=== PATIENT | male | born 1975 | race Caucasian/White ===

== ENCOUNTER 2023-04-27 23:50 | Emergency (ER) | payer OTHER, SELFPAY ==
--- NOTE | 2023-04-27 00:02 | ECG_ITS ---
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
[2023-04-27 23:53] VITALS: BP 180/110; PULSE 64; RESP 18; TEMP 36.6; O2SAT 97; BMI 27.5
[2023-04-28] VITALS (28 sets, daily range): BP systolic 143–180; BP diastolic 89–103; PULSE 55–117; RESP 12–20; O2SAT 94–98
--- NOTE | 2023-04-28 00:08 | ED_ITS ---
HPI - Nausea/Vomiting/Diarrhea General Chief complaint: Nausea/Vomiting/Diarrhea Stated complaint: vomiting Time Seen by Provider: 04/28/23 00:06 Source: patient Mode of arrival: walk-in Limitations: no limitations History of Present Illness HPI Narrative: presents with recurrent vomiting. States started about 9pm. After he emptied his stomach he was dry heaving and noticed some blood. Also has abdominal pain and is constipated. At [facility] last night but so did others in his family and no one is ill except him. No fever MD elicited complaint: Reports nausea and vomiting Related Data Home Medications Medication Instructions Recorded Confirmed No Known Home Medications 04/27/23 04/27/23 Allergies Allergy/AdvReac Type Severity Reaction Status Date / Time No Known Drug Allergies Allergy Verified 04/27/23 23:56 Review of Systems ROS Status of ROS 10 or more systems reviewed and unremark able except as noted in history and below [facility] Social History Smoking status: Current every day smoker Exam Constitutional Vital Signs, click to edit/add: Last Vital Signs Temp 97.9 F 04/27/23 23:53 Pulse 73 04/28/23 04:02 Resp 12 04/28/23 04:02 BP 161/102 H 04/28/23 04:02 Pulse Ox 98 04/28/23 02:50 O2 Del Method Room Air 04/27/23 23:53 Common normals: no apparent distress, average body habitus, oriented x3, no limitations, healthy appearing, alert and well nourished [facility] Common normals: normocephalic and head/scalp atraumatic Eye Common normals: PERRL, EOMs intact bilaterally and conjunctivae normal Respiratory Common normals: normal respiratory effort, no retractions, no use of accessory muscles and clear to auscultation bilaterally Cardio Common normals: regular rate, regular rhythm, S1 normal heart sound and S2 normal heart sound GI Common normals: soft to palpation and non-tender Extremity Common normals: normal to inspection and full ROM Neuro Common normals: oriented x3, CN's II-XII intact bilaterally, moves all extremities and no focal motor deficits Psych Appearance: grossly normal Course Vital Signs Vital signs: Vital Signs Temperature 97.9 F 04/27/23 23:53 Pulse Rate 64 04/27/23 23:53 Respiratory Rate 18 04/27/23 23:53 Blood Pressure 180/110 H 04/27/23 23:53 Pulse Oximetry 97 04/27/23 23:53 Oxygen Delivery Method Room Air 04/27/23 23:53 Temperature 97.9 F 04/27/23 23:53 Pulse Rate 73 04/28/23 04:02 Respiratory Rate 12 04/28/23 04:02 Blood Pressure 161/102 H 04/28/23 04:02 Pulse Oximetry 98 04/28/23 02:50 Oxygen Delivery Method Room Air 04/27/23 23:53 MDM - Nausea/Vomiting/Diarrhea MDM Narrative Medical decision making narrative: patient presents with recurrent vomiting. Complains of RLQ pain. Nausea and vomiting controlled with one dose of zofran. Exam with RLQ tenderness without guarding. CT with findings of stones gallbladder neck. LFTs normal. Patient medicated for pain and observed for an hour. continued to do well and was drinking fluids. Patient re examined and still no RUQ tenderness. Patient also treated for HTN. Discharged home with a prescription for Norvasc, zofran and advised to follow up with a family doctor. He is to return to the ER if pain or vomiting not controlled at home. Provided with # 4 norco to take home this AM Lab Data Labs: Lab Results 04/28/23 Range/Units 00:00 WBC 14.0 H (4.0-11.0) 10^3/uL RBC 4.94 (4.70-6.10) 10^6/uL Hgb 14.7 (14.0-18.0) g/dL Hct 44.3 (42.0-54.0) % MCV 89.7 (80.0-94.0) fL MCH 29.8 (25.9-34.0) pg MCHC 33.2 (29.9-35.2) g/dL RDW 12.6 (11.0-15.0) % Plt Count 226 (150-450) 10^3/uL MPV 12.0 (9.5-13.5) fL Neut % (Auto) 76.9 H (43.0-75.0) % Lymph % (Auto) 15.8 L (20.5-60.0) % [place] % (Auto) 5.1 (1.7-12.0) % Eos % (Auto) 1.5 (0.9-7.0) % Baso % (Auto) 0.3 (0.2-2.0) % Neut # (Auto) 10.8 H (1.4-6.5) 10^3/uL Lymph # (Auto) 2.2 (1.2-3.8) 10^3/uL [place] # (Auto) 0.7 (0.3-0.8) 10^3/uL Eos # (Auto) 0.2 (0.0-0.7) 10^3/uL Baso # (Auto) 0.0 (0.0-0.1) 10^3/uL Abs Immat Gran (auto) 0.05 H (0.00-0.03) 10^3/uL Imm/Tot Granulo (auto) 0.4 (0.0-0.5) % Sodium 143 (136-145) mmol/L Potassium 3.5 (3.5-5.1) mmol/L Chloride 106 (98-107) mmol/L Carbon Dioxide 29.9 (21.0-32.0) mmol/L Anion Gap 10.6 BUN 15.0 (7.0-18.0) mg/dL Creatinine 1.03 (0.70-1.30) mg/dL Est GFR ( Amer) >60 (>=60) Est GFR (Non-Af Amer) >60 (>=60) BUN/Creatinine Ratio 14.6 Glucose 123 H (74-106) mg/dL Lactate 1.0 (0.4-2.0) mmol/L Calcium 9.1 (8.5-10.1) mg/dL Total Bilirubin 0.3 (0.2-1.0) mg/dL AST 13 L (15-37) U/L ALT 29 (16-63) U/L Alkaline Phosphatase 96 (46-116) U/L Troponin I High Sens 5.5 (4.0-76.1) pg/mL Total Protein 7.6 (6.4-8.2) g/dL Albumin 3.9 (3.4-5.0) g/dL Globulin 3.7 g/dL Albumin/Globulin Ratio 1.1 Lipase 36.0 (16.0-77.0) U/L Imaging Data Chest x-ray: Radiologist's impression: ITS Impressions Abdomen/Pelvis CT 04/28/23 00:11 IMPRESSION: 2 large gallstone seen within the gallbladder neck measuring up to 1.6 centimeters. The gallbladder has a hydropic appearance with suggestion of wall thickening. No pericholecystic fluid. Right upper quadrant ultrasound for further evaluation as clinically warranted. Small hiatal hernia. Electronically authenticated by: SUE GAMBLE Date: 04/28/2023 01:32 Discharge Plan Discharge Chief Complaint: Nausea/Vomiting/Diarrhea Clinical Impression: Nausea & vomiting, Hypertension, Cholelithiasis Patient Disposition: Home, Self-Care Condition: Good Mode of Transportation: Private Vehicle Prescriptions / Home Meds: No Action No Known Home Medications Instructions: Gallstones (ED), Acute Nausea and Vomiting (DC), Hypertension (ED) Additional Instructions: follow up with Dr Leonardo early next week. Return if pain not controlled or vomiting not controlled Stand Alone Forms: Portal Instructions Referrals: Physician,Non-Staff, MD [Primary Care Provider] - 1 week Discharge Date/Time: 04/28/23 04:05
--- NOTE | 2023-04-28 00:11 | CT_ITS ---
[address] [address] Patient Name: JOSÉ WALLIS MRN: [id number] date: 1975 Sex: M Assigned Patient Location: ER Current Patient Location: ER Accession/Order Number: [id number] Exam Date: 04/28/2023 00:52 Report Date: 04/28/2023 01:32 At the request of: MEHRDAD MARS Procedure: CT abdomen pelvis w con EXAM: CT abdomen pelvis w con HISTORY: vomiting COMPARISON: None. TECHNIQUE: CT of abdomen and pelvis with intravenous contrast. Dose reduction techniques were achieved by using automated exposure control and/or adjustment of mA and/or kV according to patient size and/or use of iterative reconstruction technique. FINDINGS: TUBES AND IMPLANTS: None. LOWER CHEST: Small hiatal hernia. ABDOMEN and PELVIS ABDOMINAL WALL AND SOFT TISSUES: Unremarkable. BONES: No suspicious lesions. Multilevel degenerative changes of the spine. ARTERIES: No aortoiliac aneurysm. VEINS: Unremarkable. LYMPH NODES: Unremarkable. PERITONEUM/ RETROPERITONEUM: Unremarkable. BOWEL: No obstruction APPENDIX: Unremarkable LIVER: No focal lesions. GALLBLADDER: Two large gallstones seen within the gallbladder neck measuring up to 1.6 centimeters. The gallbladder has a hydropic appearance. BILE DUCTS: Not dilated SPLEEN: Unremarkable PANCREAS: Unremarkable. ADRENALS: Unremarkable. KIDNEYS/ URETERS: No left stones or hydronephrosis. Small right renal cyst with punctate calcification. No right hydronephrosis. REPRODUCTIVE ORGANS: Mild cardiomegaly. URINARY BLADDER: Unremarkable. CT/CT abdomen pelvis w con IMPRESSION: 2 large gallstone seen within the gallbladder neck measuring up to 1.6 centimeters. The gallbladder has a hydropic appearance with suggestion of wall thickening. No pericholecystic fluid. Right upper quadrant ultrasound for further evaluation as clinically warranted. Small hiatal hernia. Electronically authenticated by: SUE GAMBLE Date: 04/28/2023 01:32
[2023-04-28 00:23] LABS: Basophils Percent Auto 0.3 % (0.2-2.0); Eosinophils Absolute Auto 0.2 10^3/uL (0.0-0.7); Eosinophils Percent Auto 1.5 % (0.9-7.0); Hematocrit 44.3 % (42.0-54.0); Hemoglobin 14.7 g/dL (14.0-18.0); Immature Granulocytes Abs Auto 0.05 10^3/uL (0.00-0.03); Immature Granulocytes Pct Auto 0.4 % (0.0-0.5); Lymphocytes Absolute Auto 2.2 10^3/uL (1.2-3.8); Lymphocytes Percent Auto 15.8 % (20.5-60.0); Mean Corpuscular HGB Conc 33.2 g/dL (29.9-35.2); Mean Corpuscular Hemoglobin 29.8 pg (25.9-34.0); Mean Corpuscular Volume 89.7 fL (80.0-94.0); Monocytes Absolute Auto 0.7 10^3/uL (0.3-0.8); Monocytes Percent Auto 5.1 % (1.7-12.0); Neutrophils Absolute Auto 10.8 10^3/uL (1.4-6.5); Neutrophils Percent Auto 76.9 % (43.0-75.0); Platelet Count 226 10^3/uL (150-450); Red Blood Count 4.94 10^6/uL (4.70-6.10); Red Cell Distribution Width 12.6 % (11.0-15.0)
[2023-04-28] MEDS: ONDANSETRON PF 4 MG/2 ML VIAL IV (00:33)
[2023-04-28] MEDS: 0.9 % SODIUM CHLORIDE 1,000 ML 100 ML IV (00:33)
[2023-04-28 00:46] LABS: Alanine Aminotransferase 29 U/L (16-63); Albumin Globulin Ratio 1.1; Albumin Level 3.9 g/dL (3.4-5.0); Alkaline Phosphatase 96 U/L (46-116); Anion Gap 10.6; Aspartate Amino Transferase 13 U/L (15-37); BUN Creatinine Ratio 14.6; Bilirubin Total 0.3 mg/dL (0.2-1.0); Calcium 9.1 mg/dL (8.5-10.1); Carbon Dioxide 29.9 mmol/L (21.0-32.0); Chloride 106 mmol/L (98-107); Estimated GFR (African America >60 (>=60); Estimated GFR (Non-African Ame >60 (>=60); Globulin 3.7 g/dL; Glucose 123 mg/dL (74-106); Potassium 3.5 mmol/L (3.5-5.1); Sodium 143 mmol/L (136-145); Total Protein 7.6 g/dL (6.4-8.2); Troponin I High Sensitivity 5.5 pg/mL (4.0-76.1)
[2023-04-28] MEDS: HYDROMORPHONE HCL 0.5 MG/0.5 ML SYRINGE IV (01:55)
[2023-04-28] MEDS: HYDRALAZINE HCL 20 MG/ML VIAL 5 MG IVP (01:55)
[2023-04-28] MEDS: HYDROCODONE/ACET 5-325 MG TABLET 4 TAB PO (04:00)
[2023-04-28] MEDS: ONDANSETRON 4 MG RAPDIS TABLET SL (04:01)
== END 2023-04-28 04:05 | disposition home or self-care (01) ==
PROVIDERS: Emergency Provider Internal Medicine; Family Provider Family Medicine
DX: R11.2 Nausea with vomiting, unspecified (principal); I10 Essential (primary) hypertension; K80.20 Calculus of gallbladder without cholecystitis without obstruction; F17.210 Nicotine dependence, cigarettes, uncomplicated
CPT/HCPCS: 36415; 74177; 80053; 83605; 83690; 84484; 85025; 93005; 96374; 96375; 99285; J0360; J1170; J2405; Q0162; Q9967

== ENCOUNTER 2023-05-01 18:47 | Emergency (ER) | payer OTHER, SELFPAY ==
[2023-05-01 18:56] VITALS: BP 176/113; PULSE 66; RESP 18; O2SAT 97; BMI 28.2
--- OUTSIDE RECORDS SUMMARY | 2023-05-01 19:09 | XMS_ITS | CCD ---
Author Name Unknown Address [address] [place] [address] Organization [facility] Care Team Providers Care Telephone Triage Nurse Name Role Phone ADAM, LAVON A Unavailable Unavailable NADERER, CAROL A Unavailable Unavailable NADERER, CAROL A Unavailable Unavailable WEST, DOROTA Scott Unavailable Unavailable ADAM, LAVON A Unavailable Unavailable GAYATRI, JULIA Unavailable Unavailable NADERER, CAROL A Unavailable Unavailable POTTERISAMAR Unavailable Unavailable JERAD, MEHRDAD Unavailable Unavailable HEAVENLY CASSIDY Unavailable Unavailable Problems Active Problems Problem Classification Problem Date Documented Da te Episodic/Chronic Esophageal disorders (2 sources) Esophageal obstruction; Translations: [Gastro-esophageal reflux disease without esophagitis] Onset: 10-16-2016 Chronic External Injury - Natural / Environment (1 source) Exposure to other specified factors, initial encounter; Translations: [EXPOSURE OTHER SPEC FACTORS INITIAL] Onset: 10-16-2016 Other injuries and conditions due to external causes (4 sources) Food in esophagus causing other injury, initial encounter; Translations: [FOOD ESOPH CAUS OTH INJURY INIT ENC] Onset: 09-28-2016 Past or Other Problems Problem Classification Problem Date Documented Da te Episodic/Chronic Gastritis and duodenitis (1 source) Duodenitis with bleeding; Translations: [DUODENITIS WITH BLEEDING] Onset: 10-16-2016 Episodic Other gastrointestinal disorders (1 source) Dysphagia, unspecified; Translations: [DYSPHAGIA UNSPECIFIED] Onset: 10-16-2016 Episodic Encounters Encounter Date Encounter Type Care Provider Facility Start: 09-28-2016 End: 09-28-2016 Ambulatory LAVON ADAM Facility: Payers Date Payer Category Payer Unknown [id number] Summary Purpose Family History No Family History Records Found Advance Directives No Advanced Directives Records Found Additional Source Comments (unrecognized sect ion and content) No Status Records Found INFORMATION SOURCE (unrecogn ized section and content) DATE CREATED AUTHOR 10/02/2017 [facility] FOR RECORDS PERTAINING TO PATIENTS WHO ARE OR HAVE BEEN ENROLLED IN A CHEMICAL DEPENDENCY/SUBSTANCEABUSE PROGRAM, SOME INFORMATION MAY BE OMITTED. This clinical summary was aggregated from multiple sources. Caution should be exercised in using it in the provision of clinical care. This summary normalizes information from multiple sources, and as a consequence, information in this document may materially change the coding, format and clinical context of patient data. In addition, data may be omitted in some cases. CLINICAL DECISIONS SHOULD BE BASED ON THE PRIMARY CLINICAL RECORDS. [facility]. provides no warranty or guarantee of the accuracy or completeness of information in this document.
--- NOTE | 2023-05-01 19:39 | US_ITS ---
The [address] [address] Patient Name: JOSÉ WALLIS MRN: [id number] date: 1975 Sex: M Assigned Patient Location: ER Current Patient Location: ER Accession/Order Number: [id number] Exam Date: 05/01/2023 19:45 Report Date: 05/01/2023 20:55 At the request of: NAIF MITCHELL Procedure: US right upper quadrant EXAMINATION: US right upper quadrant TECHNIQUE: Limited ultrasound of the abdomen was performed. Grayscale and color flow Doppler imaging. HISTORY: Abdominal pain. COMPARISON: CT scan 04/28/2023 FINDINGS: Liver: There is mildly heterogeneous without discrete mass lesion. Gallbladder/biliary: Small shadowing stone within the neck of the gallbladder. No gallbladder wall thickening or pericholecystic fluid. The common extrahepatic duct diameter measures 9.6mm. No gross obstructing stone or mass of the biliary tree. Pancreas: The visualized portion of the pancreas demonstrates normal homogeneous echotexture. Right Kidney: Small echogenic nonobstructing stone of the upper pole right kidney measuring 9 mm. Other findings: None US/US right upper quadrant IMPRESSION: Extrahepatic biliary dilatation without gross obstructing stone or mass. Consider MRCP if further evaluation of the biliary tree is necessary. Electronically authenticated by: YONI ZAMARRIPA Date: 05/01/2023 20:55
[2023-05-01 20:01] LABS: Basophils Percent Auto 0.3 % (0.2-2.0); Eosinophils Absolute Auto 0.2 10^3/uL (0.0-0.7); Hematocrit 44.7 % (42.0-54.0); Immature Granulocytes Abs Auto 0.02 10^3/uL (0.00-0.03); Immature Granulocytes Pct Auto 0.2 % (0.0-0.5); Lymphocytes Absolute Auto 1.5 10^3/uL (1.2-3.8); Lymphocytes Percent Auto 12.6 % (20.5-60.0); Mean Corpuscular HGB Conc 33.6 g/dL (29.9-35.2); Mean Corpuscular Volume 89.4 fL (80.0-94.0); Monocytes Absolute Auto 0.6 10^3/uL (0.3-0.8); Monocytes Percent Auto 5.1 % (1.7-12.0); Neutrophils Absolute Auto 9.4 10^3/uL (1.4-6.5); Neutrophils Percent Auto 79.8 % (43.0-75.0); Platelet Count 234 10^3/uL (150-450); Red Cell Distribution Width 12.5 % (11.0-15.0); White Blood Count 11.7 10^3/uL (4.0-11.0)
[2023-05-01 20:14] LABS: Alanine Aminotransferase 26 U/L (16-63); Albumin Globulin Ratio 0.9; Albumin Level 3.7 g/dL (3.4-5.0); Alkaline Phosphatase 92 U/L (46-116); Anion Gap 9.2; Aspartate Amino Transferase 11 U/L (15-37); BUN Creatinine Ratio 14.3; Bilirubin Total 0.4 mg/dL (0.2-1.0); Calcium 9.1 mg/dL (8.5-10.1); Carbon Dioxide 29.7 mmol/L (21.0-32.0); Chloride 107 mmol/L (98-107); Estimated GFR (African America >60 (>=60); Estimated GFR (Non-African Ame >60 (>=60); Globulin 4.1 g/dL; Glucose 106 mg/dL (74-106); Potassium 3.9 mmol/L (3.5-5.1); Sodium 142 mmol/L (136-145); Total Protein 7.8 g/dL (6.4-8.2)
[2023-05-01] MEDS: 0.9 % SODIUM CHLORIDE 1,000 ML 999 ML IV (20:16)
--- NOTE | 2023-05-01 20:22 | ED.ABDPAIN1 ---
HPI - Abdominal Pain General Chief Complaint: Abdominal Pain Stated Complaint: ABD PAIN Time Seen by Provider: 05/01/23 19:39 Source: patient Mode of arrival: walk-in Limitations: no limitations History of Present Illness HPI narrative: Is a 48-year-old male who returns to the emergency department for epigastric discomfort. Patient states he was seen in this emergency department on Saturday of this past week, he was diagnosed with gallstones and discharged home with pain medication and nausea medication. He states he was not given a general surgery referral. He reports today after eating sausage he had an increase in pain and was concerned that it may be heartburn versus the gallstones. He has had no new fevers. He states he took a pain pill and the nausea medication without significant relief so he came to the ER. No persistent vomiting or diarrhea. No urinary symptoms. Related Data Previous Rx's Medication Instructions Recorded ketorolac 10 mg tablet 10 mg PO TID PRN pain #10 tabs 05/01/23 pantoprazole 40 mg tablet,delayed 40 mg PO DAILY #7 tabs 05/01/23 release (Protonix) promethazine 25 mg tablet 25 mg PO Q6H PRN nausea and 05/01/23 vomiting #12 tabs Allergies Allergy/AdvReac Type Severity Reaction Status Date / Time No Known Drug Allergies Allergy Verified 05/01/23 18:59 Review of Systems ROS Constitutional Denies: fever or chills Ears, nose, mouth, and throat Denies: throat pain or nasal congestion Cardiovascular Denies: chest pain Respiratory Denies: shortness of breath or cough Gastrointestinal Reports: abdominal pain and nausea; Denies: vomiting or diarrhea Genitourinary Denies: painful urination Musculoskeletal Denies: back pain or neck pain Integumentary/Breast Denies: rash Neurological Denies: headache Hematologic/Lymphatic Denies: easy bruising or easy bleeding PFSH PFSH Social History Smoking status: Current every day smoker Exam Narrative Exam Narrative: Gen.: Awake, alert, in no distress Head: Normocephalic, atraumatic ENT: Moist mucous membranes Respiratory: No respiratory distress, lungs clear bilaterally Cardio: Regular rate and rhythm Gastrointestinal: Abdomen is soft, nondistended and Mild tenderness in the epigastrium with no guarding or rebound Extremities: Moves extremities equally Psych: Normal mood and affect Neuro: No focal neuro deficit Skin: Warm, dry, intact Constitutional Vital Signs, click to edit/add: Last Vital Signs Pulse 71 05/01/23 20:34 Resp 18 05/01/23 18:56 BP 161/100 H 05/01/23 20:34 Pulse Ox 96 05/01/23 20:34 O2 Del Method Room Air 05/01/23 18:56 Course Vital Signs Vital signs: Vital Signs Pulse Rate 66 05/01/23 18:56 Respiratory Rate 18 05/01/23 18:56 Blood Pressure 176/113 H 05/01/23 18:56 Pulse Oximetry 97 05/01/23 18:56 Oxygen Delivery Method Room Air 05/01/23 18:56 Pulse Rate 71 05/01/23 20:34 Respiratory Rate 18 05/01/23 18:56 Blood Pressure 161/100 H 05/01/23 20:34 Pulse Oximetry 96 05/01/23 20:34 Oxygen Delivery Method Room Air 05/01/23 18:56 MDM - Abdominal Pain MDM Narrative Medical decision making narrative: Lab studies show improved white blood cell count, no significant leukocytosis and the patient has normal bilirubin, normal LFTs. Abdomen is soft and benign in the ER. His vital signs are stable. He was medicated with IV fluids, Toradol, Protonix, Zofran. He had no episodes of emesis in the ER and is resting comfortably on reevaluation by attending physician. Ultrasound shows no evidence of acute cholecystitis although the patient does have a 9.6 cm extrahepatic duct, I discussed this with general surgery Dr. Beck.He is in agreement that the patient can be discharged with close outpatient follow-up for MRCP with GI and general surgery evaluation. Patient is in agreement with treatment plan and discharged home with instructions for his diet, return to the ER if symptoms change or worsen. Medical Records Attestation: I reviewed the patient's medical records. Lab Data Attestation: I reviewed the patient's lab results. Labs: Lab Results 05/01/23 Range/Units 19:50 WBC 11.7 H (4.0-11.0) 10^3/uL RBC 5.00 (4.70-6.10) 10^6/uL Hgb 15.0 (14.0-18.0) g/dL Hct 44.7 (42.0-54.0) % MCV 89.4 (80.0-94.0) fL MCH 30.0 (25.9-34.0) pg MCHC 33.6 (29.9-35.2) g/dL RDW 12.5 (11.0-15.0) % Plt Count 234 (150-450) 10^3/uL MPV 12.0 (9.5-13.5) fL Neut % (Auto) 79.8 H (43.0-75.0) % Lymph % (Auto) 12.6 L (20.5-60.0) % [place] % (Auto) 5.1 (1.7-12.0) % Eos % (Auto) 2.0 (0.9-7.0) % Baso % (Auto) 0.3 (0.2-2.0) % Neut # (Auto) 9.4 H (1.4-6.5) 10^3/uL Lymph # (Auto) 1.5 (1.2-3.8) 10^3/uL [place] # (Auto) 0.6 (0.3-0.8) 10^3/uL Eos # (Auto) 0.2 (0.0-0.7) 10^3/uL Baso # (Auto) 0.0 (0.0-0.1) 10^3/uL Abs Immat Gran (auto) 0.02 (0.00-0.03) 10^3/uL Imm/Tot Granulo (auto) 0.2 (0.0-0.5) % Sodium 142 (136-145) mmol/L Potassium 3.9 (3.5-5.1) mmol/L Chloride 107 (98-107) mmol/L Carbon Dioxide 29.7 (21.0-32.0) mmol/L Anion Gap 9.2 BUN 15.0 (7.0-18.0) mg/dL Creatinine 1.05 (0.70-1.30) mg/dL Est GFR ( Amer) >60 (>=60) Est GFR (Non-Af Amer) >60 (>=60) BUN/Creatinine Ratio 14.3 Glucose 106 (74-106) mg/dL Calcium 9.1 (8.5-10.1) mg/dL Total Bilirubin 0.4 (0.2-1.0) mg/dL AST 11 L (15-37) U/L ALT 26 (16-63) U/L Alkaline Phosphatase 92 (46-116) U/L Total Protein 7.8 (6.4-8.2) g/dL Albumin 3.7 (3.4-5.0) g/dL Globulin 4.1 g/dL Albumin/Globulin Ratio 0.9 Lipase 17.0 (16.0-77.0) U/L Imaging Data US - abdomen: Attestation: I have reviewed the pertinent imaging results. Radiologist's impression: ITS Impressions Upper Quadrant Ultrasound 05/01/23 19:39 IMPRESSION: Extrahepatic biliary dilatation without gross obstructing stone or mass. Consider MRCP if further evaluation of the biliary tree is necessary. Electronically authenticated by: YONI ZAMARRIPA Date: 05/01/2023 20:55 Discharge Plan Discharge Chief Complaint: Abdominal Pain Clinical Impression: Abdominal pain, Biliary colic Patient Disposition: Home, Self-Care Time of Disposition Decision: 21:17 Condition: Good Prescriptions / Home Meds: New ketorolac 10 mg tablet 10 mg PO TID PRN (Reason: pain) Qty: 10 0RF pantoprazole [Protonix] 40 mg tablet,delayed release (DR/EC) 40 mg PO DAILY Qty: 7 0RF promethazine 25 mg tablet 25 mg PO Q6H PRN (Reason: nausea and vomiting) Qty: 12 0RF Instructions: Biliary Colic (ED), Acute Abdominal Pain (ED) Stand Alone Forms: Portal Instructions Referrals: RAGINI ASTORGA [Physician] - 1 week Brian Mccann MD [Physician] - 1 week Physician,Non-Staff, [Primary Care Provider] - 1 week
[2023-05-01 20:34] VITALS: BP 161/100; PULSE 71; O2SAT 96
[2023-05-01] MEDS: ONDANSETRON PF 4 MG/2 ML VIAL IV (20:40)
[2023-05-01] MEDS: HYOSCYAMINE SULFATE 0.125 MG TAB.SUBL SL (20:40)
[2023-05-01] MEDS: KETOROLAC TROMETHAMINE 30 MG/ML VIAL IVP (20:40)
[2023-05-01] MEDS: PANTOPRAZOLE SODIUM 40 MG VIAL IV (20:40)
[2023-05-01 21:50] VITALS: BP 120/84; PULSE 59; O2SAT 96
== END 2023-05-01 22:08 | disposition home or self-care (01) ==
PROVIDERS: Physician Assistant; Emergency Provider Emergency Medicine; Family Provider Family Medicine
DX: K80.70 Calculus of gallbladder and bile duct without cholecystitis without obstruction (principal); F17.200 Nicotine dependence, unspecified, uncomplicated; R10.13 Epigastric pain
CPT/HCPCS: 36415; 76705; 80053; 83690; 85025; 96374; 96375; 99285; J1885; J2405

== ENCOUNTER 2023-05-13 06:50 | Outpatient (OUT) | payer OTHER, SELFPAY ==
--- NOTE | 2023-05-13 06:45 | NM_ITS ---
The [address] [address] Patient Name: JOSÉ WALLIS MRN: [id number] date: 1975 Sex: M Assigned Patient Location: ME Current Patient Location: ME Accession/Order Number: [id number] Exam Date: 05/13/2023 07:00 Report Date: 05/13/2023 11:34 At the request of: NON-STAFF PHYSICIAN Procedure: ME hepatobiliary wo pharm EXAMINATION: ME hepatobiliary wo pharm HISTORY: RIGHT UPPER QUADRANT PAIN COMPARISON: No relevant comparison available. TECHNIQUE: Radionuclide hepatobiliary imaging was performed after intravenous injection of 4.9 mCi Tc-99m NATHAN mebrofenin with sequential acquisitions every 1 minute for one hour. Images taken at 2, 3 and 4 hours FINDINGS: LIVER: Normal, prompt and uniform radiotracer uptake and clearing. BILIARY DUCTS: Normal radioisotopic biliary excretion. Nonvisualization of the cystic duct GALLBLADDER: The gallbladder is not visualized throughout the course of the exam INTESTINE: Normal with no evidence of common biliary ductal obstruction. EJECTION FRACTION: Not performed OTHER: Negative. ME/ME hepatobiliary wo pharm IMPRESSION: Nonvisualization of the gallbladder and cystic duct out to 4 hours, this suggests cholecystitis or cystic duct obstruction Electronically authenticated by: DOROTA WOMACK Date: 05/13/2023 11:34
--- OUTSIDE RECORDS SUMMARY | 2023-05-13 06:52 | XMS_ITS | CCD ---
Author Name Unknown Address [address] [facility] [address] [place] [address] Organization [facility] Care Team Providers Care Cleaning Technician Name Role Phone ADAM, LAVON A Unavailable Unavailable NADERER, CAROL A Unavailable Unavailable NADERER, CAROL A Unavailable Unavailable DOROTA WOMACK V Unavailable Unavailable ADAM, LAVON A Unavailable Unavailable GAYATRIJULIA Unavailable Unavailable NADERER, CAROL A Unavailable Unavailable POTTERISAMAR Unavailable Unavailable JERAD, MEHRDAD Unavailable Unavailable HEAVENLY CASSIDY Unavailable Unavailable SHAIKH COLLINS Attending Unavailable Problems Active Problems Problem Classification Problem [...] Date Encounter Type Care Provider Facility Start: 05-08-2023 End: 05-08-2023 ambulatory SHAIKH KARINA Not Available Start: 09-28-2016 End: 09-28-2016 Ambulatory LAVON ADAM Facility: Payers Date Payer Category Payer Private Health Insurance [id number] 1975 Unknown [id number] 1957 Unknown [id number] Summary Purpose Family History No Family History Records FoundNo Family History Records Found Advance Directives No Advanced Directives Records FoundNo Advanced Directives Records Found Additional Source Comments (unrecognized sect ion and content) No Status Records FoundNo Status Records Found INFORMATION SOURCE (unrecogn ized section and content) DATE CREATED AUTHOR 10/02/2017 [facility] DATE CREATED AUTHOR AUTHOR'S ORGANIZ ATION 05/10/2023 [facility] [employer] FOR RECORDS PERTAINING TO PATIENTS WHO ARE [...] BE BASED ON THE PRIMARY CLINICAL RECORDS. [employer] [facility]. provides no warranty or guarantee of the accuracy or completeness of information in this document.
== END 2023-05-13 06:51 | disposition home or self-care (01) ==
LOC: NM 06:50
PROVIDERS: Family Provider Family Medicine
DX: R10.84 Generalized abdominal pain (principal)
CPT/HCPCS: 78226; A9537

== ENCOUNTER 2024-09-17 07:21 | Outpatient (OUT) | payer OTHER, SELFPAY ==
--- OUTSIDE RECORDS SUMMARY | 2024-09-16 08:30 | XMS_ITS | Encounter Summary ---
Author Organization [facility] Address [address] [place] [address] Care Team Providers Care Pastry Cook Helper Name Role Phone Shaikh KERRI Ludwig Primary Care Provider [phone] Reason for Visit * Reason Comments Follow-up 6M Fatigue Insomnia Encounter Details Date Type Department Care Team (Late st Contact Info) Description 09/16/2024 8:30 AM EDT [facility] [address] [place] [address] Diaz Leonardo MD [address] [place] [id number] Annual physical exam (Primary Dx); Primary hypertension ; Primary insomnia Social History Tobacco Use Types Packs/Day Years Used Date Smoking Tobacco: Former Cigarettes Passive Smoke Exposure: Past Smokeless Tobacco: Never Alcohol Use Standard Drinks/Week Comments Never 0 (1 standard drink = 0.6 oz pur e alcohol) B1300 Health Literacy Answer Date Recor ded How often do you need to hav e someone help you when you read instructions, pamphlets, or other written material from your doctor or pharmacy? Never 03/04/2024 Social Connection and Isolation Panel [NHANES] A nswer Date Recorded In a typical week, how many times do you talk on the phone with family, friends, or neighbors? Never 03/04/2024 How often do you get together with friends or re latives? Never 03/04/2024 How often do you attend restorationist or adventism serv ices? Never 03/04/2024 Do you belong to any clubs o r organizations such as restorationist groups, unions, fraternal or athletic groups, or school groups? No 03/04/2024 How often do you attend meet ings of the clubs or organizations you belong to? Never 03/04/2024 Are you , , di vorced, , never , or living with a partner? 03/04/2024 AUDIT-C Answer Date Recorded Q1: How often do you have a drink containing alcohol? Never 03/04/2024 Q2: How many drinks containi ng alcohol do you have on a typical day when you are drinking? Patient does not drink Q3: How often do you have si x or more drinks on one occasion? Never 03/04/2024 Overall Financial Resource Strain (CARDIA) Answe r Date Recorded How hard is it for you to pa y for the very basics like food, housing, medical care, and heating? Hard 03/04/2024 PHQ-2 Answer Date Recorded Patient Health Questionnaire-2 Score 0 10/07/2023 [facility] - Occupational Stress Questionnaire Answer Date Recorded Do you feel stress - tense, restless, nervous, or anxious, or unable to sleep at night because your mind is troubled all the time - these days? To some extent 03/04/2024 Exercise Vital Sign Answer Date Recorde d On average, how many days pe r week do you engage in moderate to strenuous exercise (like a brisk walk)? 0 days 03/04/2024 On average, how many minutes do you engage in exercise at this level? 0 min 03/04/2024 Hunger Vital Sign Answer Date Recorded Within the past 12 months, y ou worried that your food would run out before you got the money to buy more. Never true 03/04/20 24 Within the past 12 months, t he food you bought just didn't last and you didn't have money to get more. Never true 03/04/2024 PRAPARE - Transportation Answer Date Re corded In the past 12 months, has l ack of transportation kept you from medical appointments or from getting medications? No 02/07 In the past 12 months, has l ack of transportation kept you from meetings, work, or from getting things needed for daily living? No 03/04/2024 Housing Stability Vital Sign Answer Herbie e Recorded In the last 12 months, was t here a time when you were not able to pay the mortgage or rent on time? No 03/04/2024 In the past 12 months, how m any times have you moved where you were living? 0 03/04/2024 At any time in the past 12 m [facility], were you homeless or living in a nursing home (including now)? No 03/04/2024 Sex and Gender Information Value Date Recorded Sex Assigned at Not on file Legal Sex Male 6:37 PM EDT Gender Identity Not on file Sexual Orientation Not on file documented as of this encounter Last Filed Vital Signs Vital Sign Reading Time Taken Comments Blood Pressure 134/86 09/16/2024 8:25 AM EDT Pulse 79 09/16/2024 8:25 AM EDT Temperature 36.4 C (97.5 F) 09/16/2024 8:25 AM EDT Respiratory Rate 18 09/16/2024 8:25 AM EDT Oxygen Saturation 98% 09/16/2024 8:25 AM EDT Inhaled Oxygen Concentration - - Weight 105 kg (231 lb) 09/16/2024 8:25 AM EDT Height 190.5 cm (6' 3 ) 09/16/2024 8:25 AM EDT Body Mass Index 28.87 09/16/2024 8:25 AM EDT documented in this encounter Progress Notes * Diaz Leonardo MD - 09/16/2024 9:04 AM EDTAssociated Problem(s): Primary insomnia Not sleeping well and try restoril. * Diaz Leonardo MD - 09/16/2024 9:03 AM EDTAssociated Problem(s): Primary hypertension BP controlled and monitor PRN. * iDaz Leonardo MD - 09/16/2024 9:03 AM EDTAssociated Problem(s): Annual physical exam Due for labs. Discussed proper diet and regular aerobic exercise. Need aerobic exercise 5-6 days a week for 30 minutes at a time. Smaller portions and limit total calories. Colonoscopy normal 05/15/2023. Tetanus every 10 years. Advised not to smoke. * Diaz Leonardo MD - 09/16/2024 8:30 AM EDT Images from the original note were not included. Subjective Patient ID: Dean Payne is a 49 y.o. male who presents for Follow-up (6M), Fatigue, and Insomnia. Presents for annual PE. Patient stable today. Weight down since last visit but up 18 pounds in pastyear. Remains active and lifts a lot at work but no regular exercise. Tries to watch diet and eat healthy. Increased fruits and vegetables. Smaller portions and limits snacking. Tries to limit total daily calories. Due for labs. Checking BP PRN and typically controlled. BP normal today. Taking medication daily and tolerating without side effects. C/o fatigue and no energy. Works nights and hard time sleeping. Able to fall asleep but up after few hours. Hard to fall back to sleep and thought racing. Not tried OTC. Review of Systems Constitutional: Negative for fatigue. Respiratory: Negative for cough, shortness of breath and wheezing. Cardiovascular: Negative for chest pain and palpitations. Gastrointestinal: Negative for abdominal pain, diarrhea, nausea and vomiting. Genitourinary: Negative for dysuria. Objective Physical Exam Constitutional: General: He is not in acute distress. Appearance: Normal appearance. HENT: Head: Normocephalic. Right Ear: Tympanic membrane and ear canal normal. Left Ear: Tympanic membrane and ear canal normal. Eyes: Extraocular Movements: Extraocular movements intact. Pupils: Pupils are equal, round, and reactive to light. Cardiovascular: Rate and Rhythm: Normal rate and regular rhythm. Heart sounds: No murmur heard. No friction rub. No gallop. Pulmonary: Breath sounds: Normal breath sounds. No wheezing, rhonchi or rales. Abdominal: General: Bowel sounds are normal. There is no distension. Palpations: Abdomen is soft. Tenderness: There is no abdominal tenderness. There is no guarding or rebound. Musculoskeletal: General: Normal range of motion. Left lower leg: No edema. Neurological: General: No focal deficit present. Mental Status: He is alert. Cranial Nerves: No cranial nerve deficit. Deep Tendon Reflexes: Reflexes normal. Assessment/Plan Problem List Items Addressed This Visit Primary hypertension (CMS/HCC) BP controlled and monitor PRN. Annual physical exam - Primary Due for labs. Discussed proper diet and regular aerobic exercise. Need aerobic exercise 5-6 days a week for 30 minutes at a time. Smaller portions and limit total calories. Colonoscopy normal 05/15/2023. Tetanus every 10 years. Advised not to smoke. Relevant Orders Testosterone Hemoglobin A1c Basic metabolic panel CBC and differential Hepatic function panel Lipid panel PSA TSH Primary insomnia Not sleeping well and try restoril. Relevant Medications temazepam (Restoril) 15 MG capsule documented in this encounter Plan of Treatment Upcoming Encounters Date Type Department Care Team (Late st Contact Info) Description 12/21/2024 8:15 AM EDT Office Visit [facility] [address] [place] [address] Diaz Leonardo MD [address] [place] [address] Scheduled Orders Name Type Priority Associated Diagnoses Orde r Schedule Testosterone Lab Routine Annual physical exam Expected: 09/16/2024 (Approximate), Expires: 09/16/2025 Hemoglobin A1c Lab Routine Annual physical exam Expected: 09/16/2024 (Approximate), Expires: 09/16/2025 Basic metabolic panel Lab Routine Annual physical exam Expected: 09/16/2024 (Approximate), Expires: 09/16/2025 CBC and differential Lab Routine Annual physical exam Expected: 09/16/2024 (Approximate), Expires: 09/16/2025 Hepatic function panel Lab Routine Annual physical exam Expected: 09/16/2024 (Approximate), Expires: 09/16/2025 Lipid panel Lab Routine Annual physical exam Expected: 09/16/2024 (Approximate), Expires: 09/16/2025 PSA Lab Routine Annual physical exam Expected: 09/16/2024 (Approximate), Expires: 09/16/2025 TSH Lab Routine Annual physical exam Expected: 09/16/2024 (Approximate), Expires: 09/16/2025 documented as of this encounter Visit Diagnoses Diagnosis Annual physical exam- Primary Routine general medical examination at a health care facility Primary hypertension Unspecified essential hypertension Primary insomnia Persistent disorder of initiating or maintaining sleep documented in this encounter Care Teams Pastry Cook Helper Relationship Specialty Start Date End Date Shaikh Ludwig MD [address] [place] [address] PCP - General Internal Medicine 05/13/23 documented as of this encounter
--- OUTSIDE RECORDS SUMMARY | 2024-09-17 07:27 | XMS_ITS | Clinical Summary ---
Author Organization [facility] Address [address] [place], [place] [id number] Care Team Providers Care Manager Cardiovascular Name Role Phone Shaikh KERRI Ludwig Primary Care Provider [phone] Allergies No known active allergies Medications amLODIPine (NORVASC) 5 mg tablet Take by mouth once daily. Active docusate sodium (COLACE) 100 mg capsule Take 100 mg by mouth two times a day. Active pantoprazole DR (PROTONIX) 40 mg tablet 06/27/2023 Active Active Problems Problem Noted Date Diagnosed Date Symptomatic cholelithiasis 06/18/2023 Social History Tobacco Use Types Packs/Day Years Used Date Smoking Tobacco: Former Cigarettes Tobacco Cessation:Counseling Given: Not Answered Sex and Gender Information Value Date Recorded Sex Assigned at Not on file Legal Sex Male 3:06 PM EST Gender Identity Not on file Sexual Orientation Not on file Last Filed Vital Signs Vital Sign Reading Time Taken Comments Blood Pressure 116/64 06/18/2023 12:45 PM EDT Pulse 73 06/18/2023 12:45 PM EDT Temperature 36.3 C (97.3 F) 06/18/2023 12:00 PM EDT Respiratory Rate 19 06/18/2023 12:45 PM EDT Oxygen Saturation 97% 06/18/2023 12:45 PM EDT Inhaled Oxygen Concentration - - Weight 96.6 kg (213 lb) 06/18/2023 8:22 AM EDT Height 190.5 cm (6' 3 ) 06/18/2023 8:22 AM EDT Body Mass Index 26.62 06/18/2023 8:22 AM EDT Plan of Treatment Health Maintenance Due Date Last Done Comments Anxiety Screening 1995 Depression Screening 1995 HIV Screening 1995 Hepatitis C Screening 1995 DTaP,Tdap,Td Vaccine (1 - Tdap) 1996 Hepatitis B Vaccine (1 of 3 - 19+ 3-dose series) 04/[address] Colonography 2022 Cologuard (FIT-DNA) 2022 Colonoscopy 2022 Colorectal Cancer Screening 2022 Diabetes Screening 2022 Fecal Occult Blood 2022 Sigmoidoscopy 2022 Covid-19 Vaccine ( season) 2023 Influenza Vaccine (Season Ended) 2024 Insurance [facility] CHO[facility] PL[facility] Care Teams Manager Cardiovascular Relationship Specialty Start Date End Date Shaikh Ludwig MD [facility] [place] [address] PCP - General Primary Care 05/22/23
--- OUTSIDE RECORDS SUMMARY | 2024-09-17 07:27 | XMS_ITS | Encounter Summary ---
Author Organization [facility] Address [address] [place] [address] Care Team Providers Care Farmworker [employer] Farm Name Role Phone Shaikh KERRI Ludwig Primary Care Provider [phone] Encounter Details Date Type Department Care Team (Late st Contact Info) Description 09/16/2024 Bamboo flowsheet [facility] [address] [place] [address] Diaz Leonardo MD [address] [place] [id number] Social History Tobacco Use Types Packs/Day Years [...] Never 03/04/2024 How often do you attend episcopalian or gnosticism serv ices? Never 03/04/2024 Do you belong to any clubs o r organizations such as episcopalian groups, unions, fraternal or athletic groups, or [...] Recorded Patient Health Questionnaire-2 Score 0 10/07/2023 [facility] - Occupational Stress Questionnaire Answer Date Recorded [...] any time in the past 12 m [facility], were you homeless or living in a [place] health care facility (including now)? No 03/04/2024 Sex and Gender Information Value Date Recorded Sex Assigned at Not on file Legal Sex Male 6:37 PM EDT Gender Identity Not on file Sexual Orientation Not on file documented as of this encounter Plan of Treatment Upcoming Encounters Date Type Department Care Team (Late st Contact Info) Description 12/21/2024 8:15 AM EDT Office Visit [facility] [address] [place] [address] Diaz Leonardo MD [address] [place] [phone] documented as of this encounter Visit Diagnoses Not on filedocumented in this encounter Care Teams Farmworker [employer] Relationship Specialty Start Date End Date Shaikh Ludwig MD [address] [place] [phone] PCP - General Internal Medicine 05/13/23 documented as of this encounter
--- OUTSIDE RECORDS SUMMARY | 2024-09-17 07:27 | XMS_ITS | CCD ---
Author Organization [facility] Team Providers Care Shoe Cobbler Name Role Phone LAVON ADAM Unavailable Unavailable NADERERDIAZ Unavailable Unavailable NADERER, DIAZ Phillip Unavailable Unavailable DOROTA WOMACK V Unavailable Unavailable ADAMLAVON FELICIANO Unavailable Unavailable JULIA MENDIETA Unavailable Unavailable NADERER, DIAZ Phillip Unavailable Unavailable POTISAMAR SUAREZ Unavailable Unavailable MEHRDAD MARS Unavailable Unavailable NICOLLE CASSIDY Unavailable Unavailable Shaikh Ludwig MD Primary Care Provider [phone] Shaikh Ludwig MD Primary Care Provider SHELBIE MAIN Attending Unavailable SHELBIE MAIN Admitting Unavailable SHAIKH LUDWIG Primary Care Unavailable SHELBIE MAIN Attending Unavailable SHELBIE MAIN Attending Unavailable SHAIKH LUDWIG Primary Care Unavailable Shaikh Ludwig MD Primary Care Provider SHAIKH LUDWIG Attending Unavailable SHAIKH LUDWIG Attending Unavailable SHAIKH LUDWIG Attending Unavailable SHAIKH LUDWIG Attending Unavailable SONIA GONZALEZ Attending Unavailwendy avila Medications Current Medications Medication Drug Class(es) Dates Sig (Normalized) Sig (Original) [id number] 200 actuat albuterol 0.09 mg/actuat metered dose inhaler (1 source) beta2-Adrenergic Agonist Start: 05-18-2024 take 1 puff(s) by inhalation every four to six hours as needed for wheezing Albuterol Sulfate 90 mcg/actuation HFA aerosol inhaler Active 2 PUFF INHALATION EVERY 4-6 HOURS as needed for shortness of breath or wheezing 8.5 February 10th, 2025 12:00am amLODIPine 5 mg oral tablet (16 sources) Dihydropyridine Calcium Channel Alvin Start: 10-07-2023 End: 03-18-2024 take 1 tablet by mouth in the morning amLODIPine (Norvasc) 5 MG tablet Indications: Primary hypertension (CMS/HCC) Take 1 tablet (5 mg) by mouth in the morning. 90 tablet 1 03/18/2024 Active Start: 05-08-2023 End: 08-06-2023 take 1 tablet by mouth in the morning amLODIPine (Norvasc) 5 MG tablet Indications: Primary hypertension (CMS/HCC) Take 1 tablet (5 mg) by mouth in the morning. 90 tablet 0 05/08/2023 08/06/2023 Active Comment on above: Take by mouth once d aily. docusate sodium 100 mg oral capsule (12 sources) Start: End: take 1 capsule by mouth twice daily as needed for constipation docusate sodium (Colace) 100 MG capsule Indications: Chronic idiopathic constipation Take 1 capsule (100 mg) by mouth 2 (two) times a day as needed for constipation 180 capsule 1 10/07/2023 2024 Active Start: 05-08-2023 End: 06-07-2023 take 1 capsule by mouth in the morning docusate sodium (Colace) 100 MG capsule Indications: Chronic idiopathic constipation Take 1 capsule (100 mg) by mouth in the morning and 1 capsule (100 mg) before bedtime. 60 capsule 0 05/08/2023 06/07/2023 Active take 1 capsule by mo ut in the morning docusate sodium (Colace) 50 MG capsule Take 50 mg by mouth in the morning and 50 mg before bedtime. Active Comment on above: Take 100 mg by mouth two times a day. ketorolac tromethamine 10 mg oral tablet (3 sources) Nonsteroidal Anti-inflammatory Drug, Cyclooxygenase Inhibitor Start: 2023 End: 2023 take 1 tablet by mouth every six hours as needed for pain ketorolac (Toradol) 10 MG tablet Take 10 mg by mouth every 6 (six) hours if needed for severe pain 0 05/02/2023 05/16/2023 Discontinued (Therapy completed) methylPREDNISolone 4 mg oral tablet (1 source) Corticosteroid Start: 2024 take 1 tablet by mouth once Methylprednisolone (Medrol (Antony)) 4 mg tablets,dose pack Active 0 PO per package directions May 18, 2024 12:00am PO PER PKG DIR for 6 days Multiple Vitamins-Minerals (CENTRUM ULTRA MENS PO) (2 sources) Multiple Vitamins-Minerals (CENTRUM ULTRA MENS PO) Take by mouth Active Multivitamin tablet (1 source) Start: 2024 take 1 tablet by mouth once daily Multivitamin tablet Active 1 TAB PO Daily May 18, 2024 12:00am ondansetron 4 mg disintegrating oral tablet (3 sources) Serotonin-3 Receptor Antagonist Start: 2023 End: 2023 take 1 tablet by mouth every eight hours as needed for nausea ondansetron ODT (Zofran-ODT) 4 MG disintegrating tablet Take 4 mg by mouth every 8 (eight) hours if needed for nausea 0 04/28/2023 05/16/2023 Discontinued (Therapy completed) pantoprazole 40 mg delayed release oral tablet (13 sources) Proton Pump Inhibitor Start: 2023 End: 2024 take 1 tablet by mouth once daily pantoprazole (ProtoNix) 40 MG EC tablet Indications: 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 0 05/02/2023 Active promethazine hydrochloride 25 mg oral tablet (3 sources) Phenothiazine Start: 05-02-2023 take 1 tablet by mouth every six hours as needed for nausea and vomiting promethazine (Phenergan) 25 MG tablet Take 25 mg by mouth every 6 (six) hours if needed for nausea or vomiting 0 05/02/2023 Active temazepam 15 mg oral capsule (2 sources) Benzodiazepine Start: 09-16-2024 End: 11-15-2024 temazepam (Restoril) 15 MG capsule Indications: Primary insomnia Take 1 capsule (15 mg) by mouth as needed at bedtime for sleep 30 capsule 1 09/16/2024 11/15/2024 Active Completed/Discontinued Medications Medication Drug Class(es) Dates Sig (Normalized) Sig (Original) Pantoprazole 40 mg tablet,delayed release (DR/EC) (1 source) Start: 05-18-2024 End: 05-18-2024 Pantoprazole 40 mg tablet,delayed release (DR/EC) Discontinued MG PO May 18, 2024 12:00am May 18, 2024 5:22pm Problems Active Problems Problem Classification Problem Date Documented Da te Episodic/Chronic Chronic obstructive pulmonary disease and bronchiectasis (2 sources) Bronchitis; Translations: [Bronchitis, not specified as acute or chronic] 05-18-2024 Episodic Diverticulosis and diverticulitis (6 sources) Diverticulosis of large intestine; Translations: [Diverticulosis of large intestine without perforation or abscess without bleeding] Onset: 05-15-2023 07-01-2023 Chronic Esophageal disorders (20 sources) Esophageal obstruction; Translations: [Gastro-esophageal reflux disease without esophagitis] Onset: 10-16-2016 Resolved: 05-16-2023 05-16-2023 Chronic Essential hypertension (16 sources) Essential hypertension; Translations: [Essential (primary) hypertension] Onset: 04-27-2023 05-08-2023 Chronic External Injury - Natural / Environment (1 source) Exposure to other specified factors, initial encounter; Translations: [EXPOSURE OTHER SPEC FACTORS INITIAL] Onset: 10-16-2016 Miscellaneous mental health disorders (4 sources) Primary insomnia; Translations: [Primary insomnia] Onset: 09-16-2024 09-16-2024 Chronic Other gastrointestinal disorders (11 sources) Chronic idiopathic constipation; Translations: [Chronic idiopathic constipation] Onset: 05-08-2023 05-08-2023 Chronic Other injuries and conditions due to external causes (4 sources) Food in esophagus causing other injury, initial encounter; Translations: [FOOD ESOPH CAUS OTH INJURY INIT ENC] Onset: 09-28-2016 Past or Other Problems Problem Classification Problem Date Documented Da te Episodic/Chronic Abdominal hernia (10 sources) Gastroesophageal reflux disease with hiatal hernia; Translations: [Diaphragmatic hernia without obstruction or gangrene] Onset: 4 05-16-2023 Episodic Administrative/social admission (9 sources) Patient encounter status; Translations: [Persons encountering health services in other specified circumstances] Onset: 4 05-08-2023 Episodic Biliary tract disease (14 sources) Cholelithiasis without obstruction; Translations: [Calculus of gallbladder without cholecystitis without obstruction] Onset: 4 Resolved: 4 05-08-2023 Episodic Gastritis and duodenitis (1 source) Duodenitis with bleeding; Translations: [DUODENITIS WITH BLEEDING] Onset: 7 Episodic Other and unspecified benign neoplasm (10 sources) History of polyp of colon; Translations: [Personal history of colonic polyps] Onset: 4 05-16-2023 Episodic Other and unspecified benign neoplasm (6 sources) Polyp of colon; Translations: [Polyp of colon] Onset: 4 07-01-2023 Episodic Other gastrointestinal disorders (1 source) Dysphagia, unspecified; Translations: [DYSPHAGIA UNSPECIFIED] Onset: 7 Episodic Residual codes; unclassified (6 sources) Family history of cancer of colon; Translations: [Family history of malignant neoplasm of digestive organs] Onset: 4 07-01-2023 Episodic Results Test Name Value Interpretation Reference Range Facility [facility] 07-10-2023 CNOV Office Visit (GENSME ) JOSÉ PAYNE ([id number]) 1975 M Date Time Provider Department 07/10/23 2:45 PM SHELBIE MAIN During your visit today, we recorded the following information about you: Shelbie Main MD 07/11/2023 1:21 PM Signed HPI: José returns status post laparoscopic cholecystectomy for acute cholecystitis. He is doing well. EXAM: There were no vitals taken for this visit. Incisions are healing nicely. PATHOLOGY: FINAL DIAGNOSIS A. Gallbladder, cholecystectomy: - Chronic cholecystitis with erosion and focal edematous stroma, no evidence of dysplasia (see comment). - Cholelithiasis. ASSESSMENT: (Z90.49) Status post laparoscopic cholecystectomy (primary encounter diagnosis) José returns status post laparoscopic cholecystectomy for acute cholecystitis. He has had an uncomplicated postoperative course. He can return to see me as needed. Office Visit on 07/10/[address] (PROTONIX) 40 mg tablet Shelbie Main MD Referring Provider: SELF [200] Allergies As of Date: 07/10/2023 (No Known Allergies) Date Reviewed: 07/10/2023 Reviewed by: Josi Su MA - Fully Assessed Reason for Visit: Post-Op Visit [1236] Cmt: 06/17 lap manda w/ grams by Dr. Main Primary Visit Diagnosis:Status post laparoscopic cholecystectomy [Z90.49] Prescriptions as of 07/11/2023 - pantoprazole DR (PROTONIX) 40 mg tablet - amLODIPine (NORVASC) 5 mg tablet Take by mouth once daily. - docusate sodium (COLACE) 100 mg capsule Take 100 mg by mouth two times a day. Problem List As Of Date 07/10/2023 Noted Resolved Symptomatic cholelithiasis [K80.20] 06/18/2023 Encounter Status:Closed by SHELBIE MAIN on 07/11/23 Normal [facility] ANES POSTPROC EVALon 024 ANES POSTPROC EVAL HNO ID: [id number] Author: NICOLLE ARREDONDO MD Service: Anesthesiology Author Type: Anesthesiologist Type: Anesthesia Postprocedure Evaluation Filed: 06/18/2023 12:33 Note Text: POST ANESTHESIA EVALUATION NOTE : 1975 Procedure Summary Date: 06/18/23 Room / Location: PA OR / PA OR Anesthesia Start: 957 Anesthesia Stop: Procedure: LAPAROSCOPIC CHOLECYSTECTOMY WITH GRAMS (Abdomen) Diagnosis: Symptomatic cholelithiasis (Symptomatic cholelithiasis [K80.20]) Surgeons: Shelbie Main MD Responsible Provider: Nicolle Arredondo MD Anesthesia Type: general ASA Status: 2 Anesthesia Type: general Airway Type: ETT Last Vitals Vitals Value Taken Time BP 124/60 06/18/23 1230 Temp 36.3 ?C (97.3 ?F) 06/18/23 1200 Pulse 68 06/18/23 1231 Resp 21 06/18/23 1231 SpO2 97 % 06/18/23 1231 Vitals shown include unfiled device data. Post Anesthesia Patient Status Patient Evaluation: PACU. PACU/ICU Patient Condition: stable. Anticipated Disposition: phase 2 then home. Neurological Status: sleepy but arousable. Pulmonary Status: breathing comfortably on supplemental oxygen Airway Control: returned to baseline unsupported. Cardiovascular Status: stable. Pain Management: clinically adequate - multimodal analgesia pain management approach Postoperative Hydration: acceptable. Intraoperative Events: no significant anesthesia events Post Operative Nausea/Vomiting Status: no significant post operative nausea or vomiting Recommendation: continue current plan of care. Anesthesia Observations No Documentation SIGNATURE: Nicolle Arredondo MD PATIENT NAME: José Payne DATE: June 18, 2023 TIME: 12:33 PM CSN: [id number] [facility] ANES PRE-OPon 06-18-2023 ANES PRE-OP HNO ID: [id number] Author: NICOLLE ARREDONDO MD Service: Anesthesiology Author Type: Anesthesiologist Type: Anesthesia Preprocedure Evaluation Filed: 06/18/2023 09:23 Note Text: ANESTHESIOLOGY DAY OF SURGERY NOTE : 1975 Procedure Information Date/Time: 06/18/23944 Procedure: LAPAROSCOPIC CHOLECYSTECTOMY WITH GRAMS - Laparoscopic cholecystectomy with cholangiogram Location: PA OR / PA OR Surgeons: Shelbie Main MD Estimated body mass index is 26.62 kg/m? as calculated from the following: Height as of this encounter: 190.5 cm (6' 3 ). Weight as of this encounter: 96.6 kg (213 lb). Most recent hematocrit and potassium results: No results found for this basename: HCT,HEMATOCRIT,K,POTASS IUM Relevant Problems No relevant active problems I - PHYSICAL EVALUATION AIRWAY Patient intubated: No. Tracheostomy tube not present Mallampati: II. TM distance: >3 FB. Neck ROM: full ROM without neurological symptoms. Mouth opening: adequate. Short neck: no. Thick neck: no Ramirez present: yes DENTAL Dental findings: teeth intact, chipped and missing tooth/teeth. Additional exam findings: yes. CARDIOVASCULAR Rhythm: regular Rate: normal PULMONARY Breath sounds clear to auscultation. II - ANESTHESIA PLAN ASA Score: 2 Anesthetic Plan: general Airway type: ETT The patient is not a current smoker. NPO Status: adequate Beta Alvin Monitoring Plan Monitoring plan: Standard ASA. Post Procedure Analgesic Plan Postoperative analgesic plan: parenteral or oral opioids and multimodal analgesia. Informed Consent Anesthetic risks, benefits, alternatives, personnel and consent discussed: yes. Patient / Responsible [employer] Party agrees to proceed: yes Patient / Surrogate agrees to blood products: yes DNR status not reviewed with patient and/or family prior to surgery. Significant changes in the patient condition since the History and Physical, not otherwise documented in primary service progress note: no. Potential Anesthesia issues that may suggest increased risk of complications or contraindication to planned procedure: none. Vitals Value Taken Time BP 118/81 06/18/23821 Pulse 63 06/18/23821 Resp 16 06/18/23821 Temp 36.2 ?C (97.2 ?F) 06/18/23821 SpO2 99 % 06/18/23821 Facility-Administered Medications as of 06/18/2023 Medication Dose Route Frequency - lidocaine (PF) 10 mg/mL (1 %) 1-2 mg injection (XYLOCAINE) 0.1-0.2 mL INTRADERMAL PRN - lactated ringers iv infusion 5-30 mL/hr INTRAVENOUS CONTINUOUS - NaCl 0.9% iv flush bag 20 mL INTRAVENOUS PRN - [COMPLETED] acetaminophen 1,000 mg tab(s) (TYLENOL) 1,000 mg ORAL Pre-Op Once - [COMPLETED] promethazine 12.5 mg tab(s) (PHENERGAN) 12.5 mg ORAL Pre-Op Once - scopolamine 1 mg over 3 days 1 Patch (TRANSDERM-SCOP) 1 Patch TRANSDERMAL q 72 HR And - [START ON 06/21/2023] scopolamine - REMOVE PATCH OTHER q 72 HR And - scopolamine - VERIFY patch OTHER q 8 H - [COMPLETED] famotidine 20 mg tab(s) (PEPCID) 20 mg ORAL Pre-Op Once No current outpatient medications on file as of 06/18/2023. I have interviewed and examined the patient. I have reviewed the medical record and/or the pre-anesthesia evaluation, pertinent labs, and test results. This contains updated information obtained within 48 hours of Surgery/Procedure. SIGNATURE: Nicolle Arredondo MD PATIENT NAME: José Payne DATE: June 18, 2023 TIME: 9:22 AM CSN: [id number] [facility] BRIEF OP NOTon 06-18-2023 BRIEF OP NOT HNO ID: [id number] Author: SHELBIE MAIN MD Service: General Surgery Author Type: Physician Type: Brief Op Note Filed: 06/18/2023 11:41 Note Text: BRIEF OPERATIVE / PROCEDURE NOTE LOG ID: [id number] SURGERY/PROCEDURE DATE: 06/18/2023 INCISION/PROCEDURE START TIME: 10:21 AM INCISION CLOSE/PROCEDURE END TIME: 11:35 AM SURGEON(S)/PROCEDURALIS T(S) AND MECHANICS HANDYMAN(S): Surgeon(s) and Role: * Shelbie Main MD - Primary Nurse Practitioner: Aishwarya Byrd APRN.CNP Physician Cnc Lathe Machine Operator: Roseanna Ruiz PA-C Registered Nurse Piano Regulator: Yesi Moses RN SURGERY/PROCEDURE(S): lap manda w/ ioc ANESTHESIA: General FINDINGS: see report ESTIMATED BLOOD LOSS: 20 ml SPECIMENS: 1 COMPLICATIONS: None CLOSURE TECHNIQUE: Primary PRE-OP/PRE-PROCEDURE DIAGNOSIS: symptomatic cholelithiasis POST-OP/POST-PROCEDURE DIAGNOSIS: Same as Preop # [id number] SIGNATURE: Shelbie Main MD PATIENT NAME: José Payne DATE: June 18, 2023 TIME: 11:37 AM [facility] HISTORY PHYSICALon HISTORY PHYSICAL HNO ID: [id number] Author: SHELBIE MAIN MD Service: General Surgery Author Type: Physician Type: H&P Filed: 06/18/2023 09:36 Note Text: UPDATED HISTORY AND PHYSICAL EXAMINATION PATIENT NAME: José Payne DATE of SERVICE: 06/18/2023 TIME of SERVICE: 9:36 AM PHYSICAL EXAM MUST BE COMPLETED ON ADMISSION The History and Physical (completed in the past 30 days) has been reviewed and the patient has been examined. The contents accurately reflect the patient's condition with the following additions or revisions since the HANDP was completed. Examination indicates no changes This HANDP can be found in the EMR dated 05/22/2023 . SIGNATURE: Shelbie Main MD DATE: June 18, 2023 TIME: 9:36 AM Normal [facility] OPERATIVE NOon 06-18-2023 OPERATIVE NO HNO ID: [id number] Author: SHELBIE MAIN MD Service: General Surgery Author Type: Physician Type: Operative Report Filed: 06/18/2023 13:17 Note Text: [facility] - Operative Report JOSÉ PAYNE : 1975 AGE: 48. SEX: M PATIENT TYPE: A HOSP SV: [facility] LOCATION: [facility] ATTENDING PHYSICIAN: Shelbie Main M.D. CSN NUMBER: [id number] DATE OF SURGERY/PROCEDURE: 06/18/2023 INCISION/PROCEDURE START TIME: 10:20 a.m. INCISION CLOSE/PROCEDURE END TIME: 11:35 a.m. PREOPERATIVE DIAGNOSIS: Symptomatic cholelithiasis. POSTOPERATIVE DIAGNOSIS: Symptomatic cholelithiasis. SURGEON: Shelbie Main M.D. MECHANICS HANDYMAN: Yesi Moses RN. SURGERY/PROCEDURE: Laparoscopic cholecystectomy with intraoperative cholangiogram using fluoroscopy. ANESTHESIA: General anesthesia. BLOOD LOSS: 20 mL. INDICATIONS FOR PROCEDURE: The patient is a 48-year-old gentleman, who presents with symptomatic cholelithiasis. He had a positive HIDA scan for acute cholecystitis previously. He now presents for elective laparoscopic cholecystectomy. Risks including bleeding, infection, common bile duct injury, and bile leak were explained, and he would like to proceed. DESCRIPTION OF PROCEDURE: The patient was identified and brought to the operating room, placed in the supine position. After general anesthesia was obtained, the abdomen was prepped and draped in sterile fashion. The abdominal cavity was entered just above the umbilicus using the Veress technique. The abdomen was then insufflated with CO2 gas to a pressure of 10 mmHg. A 10 mm trocar was then placed without complication. The abdomen was inspected. No obvious pelvic pathology was seen. He was placed into the reverse Trendelenburg position with the left side down. Two 5 mm trocars were placed in the right upper quadrant, one in the epigastric area under direct visualization without complication. The liver was normal. The gallbladder was distended with evidence of subacute cholecystitis. This was grasped with atraumatic grasper and retracted superiorly. The base of the gallbladder was then grasped with an atraumatic grasper. There was entry into the gallbladder with spillage of cloudy bile, but no stones. The base of the gallbladder was then retracted medially. The base of the gallbladder was from the cystic plate using the hook and Bovie. The gallbladder was then retracted laterally. The hepatocystic triangle was then identified and cleared of fatty tissue using blunt dissection as well as the hook and Bovie. Once a critical view was obtained, a clip was placed in the proximal cystic duct and the duct was partially divided with scissors. The cholangiocatheter was carefully inserted into the distal cystic duct. The duct was aspirated of air and flushed with saline without evidence for leak. The cholangiogram was then performed with Omnipaque and fluoroscopy. There was immediate filling of the intrahepatic and extrahepatic biliary systems and duodenum. There were no filling defects seen. The ductal system was mildly dilated. Three clips were then placed on the distal cystic duct and the duct was divided with scissors. The cystic artery was then identified, clipped, and divided. The gallbladder was then removed from the liver bed using the hook and Bovie. He had a large stone impacted in the cystic duct. The gallbladder was then placed into an EndoCatch bag and removed through the umbilical port site. The port site had to be widened to remove the enlarged gallbladder. The liver bed was again inspected. Hemostasis was obtained with cautery. The right upper quadrant was then copiously irrigated with a liter of normal saline. There was no further bleeding at the end of the case, but because the liver bed had been oozy, I didplace Surgicel powder on the liver bed. The 10 mm trocar fascia was closed using #1 Maxon with a visor installer guide technique. Two sutures were placed. Port sites were injected with 0.25% Marcaine without evidence for bleeding. The incisions were closed with 3-0 Vicryl, 5-0 Vicryl, and Exofin. All counts were correct at the end of the case. The patient tolerated the procedure well. He was taken to recovery room in good condition. Shelbie Main M.D. EMANUEL:[id number] /[id number] [facility] SURGICAL PATHOLOGYon 03-12-2 024 CASE REPORT Normal [facility] Comment on above: Order Comment: Speci men Type: TISSUE SPECIMEN Ordering Facility: [facility] Address: [address] [place] [address] Result Comment: Surg ical Pathology Report Case: [id number] Authorizing Provider: Shelbie Main MD Collected: 06/18/2023 10:28 AM Ordering Location: [facility] Surgery Received: 06/18/2023 12:10 PM Pathologist: Dre Light MD, PhD Specimen: [id number] Performed By: #### S #### [facility] CLIA [id number] [address] [place] [address] CLINICAL HISTORY Normal [facility] Comment on above: Order Comment: Speci men Type: TISSUE SPECIMEN Ordering Facility: [facility] Address: [address] [place] [address] Result Comment: Pre- op diagnosis: Symptomatic cholelithiasis [K80.20] Performed By: #### S #### [facility] CLIA [id number] [address] [place] [address] Jacklyn Onofre reviewed the case and concurs. [facility] Comment on above: Order Comment: Speci men Type: TISSUE SPECIMEN Ordering Facility: [facility] Address: [address] [place] [address] Performed By: #### S #### [facility] CLIA [id number] [address] [place] [address] FINAL DIAGNOSIS [facility] Comment on above: Order Comment: Speci men Type: TISSUE SPECIMEN Ordering Facility: [facility] Address: [address] [place] [address] Result Comment: A. G allbladder, cholecystectomy: - Chronic cholecystitis with erosion and focal edematous stroma, no evidence of dysplasia (see comment). - Cholelithiasis. - Three deeper levels examined. Performed By: #### S #### [facility] CLIA [id number] [address] [place] [address] [place] FINAL PERFORMING LAB Normal [facility] Comment on above: Order Comment: Speci men Type: TISSUE SPECIMEN Ordering Facility: [facility] Address: [address] [place] [address] Result Comment: Diag nostic interpretation performed at [facility], [address] [place] [address] CLIA# [id number] Roofer Apprentice: Myron Candelario M.D. Performed By: #### S #### [facility] CLIA [id number] [address] [place] [address] [place] GROSS DESCRIPTION A. GALLBLADDER Normal [facility] Comment on above: Order Comment: Speci men Type: TISSUE SPECIMEN Ordering Facility: [facility] Address: [address] [place] [address] Result Comment: Rece ived in formalin labeled gallbladder is an intact gallbladder measuring 11.5 x 4.5 x 2 cm. The serosa is purple-modi, smooth, and glistening. The hepatic bed is heavily cauterized. The cystic duct margin measures 0.5 cm in diameter. The lumen contains hemorrhagic bile admixed with two bosselated yellow calculi measuring 1.5 and 1.6 cm in greatest dimension. The mucosa is pink and glistening with focal areas of yellow flecks. The wall thickness ranges from 0.1 to 0.3 cm in thickness. There are no areas of induration. Picture Booker sections to include the cystic duct shave margin are submitted in cassette A1. DONG June 18, 2023 3:05 PM Gross examination performed at [facility], [address] [place] [address] CLIA# [id number] Performed By: #### S #### [facility] CLIA [id number] [address] [place] [address] STATES OF ABIGAIL XR CHOLANGIOGRAM INTRAOPon 0 06-18-2023 XR CHOLANGIOGRAM INTRAOP * * *Final Report* * * DATE OF EXAM: Jun 18 2023 10:40AM MDR 5421 - XR CHOLANGIOGRAM INTRAOP / PROCEDURE REASON: CHOLELITHIASIS * * * * Physician Interpretation * * * * INDICATION: CHOLELITHIASIS TECHNIQUE: Cine run(s) performed in the operating room by the surgeon. Fluoroscopic Radiation Summary: Plane A, Air Kerma: 2.8 mGy Dose Area Product (DAP): 0.0 mGy*cm^2 Fluoro time: 0:06 min:sec FINDINGS: There is good opacification of the extrahepatic biliary tree. No significant persistent filling defects, strictures, or obstruction are seen. Contrast drains freely into the duodenum. IMPRESSION: Negative Media Reporter: CLAUDETTE Transcribe Date/Time: Jun 18 2023 1:59P Dictated by : JO SHANE MD This examination was interpreted and the report reviewed and electronically signed by: JO SHANE MD on Jun 18 2023 2:00PM EST [id number] [facility] JOSÉ PAYNE ([id number]) 1975 M Date Time Provider Department 06/10/23 [facility] During your visit today, we recorded the following information about you: Isabelle Kwon RN 06/10/2023 9:59 AM Signed Attempted to call instructions no answer,mailbox hasn't been set up. PATIENT PREOPERATIVE INSTRUCTIONS Dr Main has scheduled you for your procedure at this surgery center:06/18/23 [facility]: [phone] -- [address] [facility] [address]. Please read below carefully for your personalized instructions. Dietary Restrictions: - No solid food after midnight. - You may have 12 ounces of clear liquids (water, clear juices such as apple juice or gatorade, carbonated beverages, clear tea, black coffee, jello) until 2 hours before scheduled arrival at facility. - Do not drink any alcohol after midnight the night before your surgery. Medications: Unless instructed differently below, stay on all of your medications until your surgery. If you start any new medications after today's visit, please contact your surgeon. Take Amlodipine with a sip of water if normaly taken in the AM If you take any medications for erectile dysfunction-Cialis (Tadalafil), Levitra, Staxyn (Vardenafil) Viagra (Sildenenafil please do not take these for 48 hours before surgery. If you start any new medications after today's visit, please contact the surgeon's office. Blood Thinning Medications: - Stop NSAIDS (Ibuprofen, Advil, Aleve, Motrin, Celebrex, Mobic, etc.) 7 days before surgery, as directed by your surgeon. - Stop Aspirin 7 days before surgery, as directed by your surgeon. - Stop Vitamin E, ALL multi-vitamins, herbals and dietary supplements 7 days before surgery. - You may take Tylenol (Acetaminophen) or any of your pain medications that do not contain aspirin or NSAIDS as needed. Important Reminders: - If you are prescribed inhalers for breathing, continue using them. - Candy, mints, and tobacco products are NOT permitted the morning of surgery. - Hearing aids, dentures and glasses may be worn the morning of surgery. - NO jewelry, body piercings, makeup, hairpins or contacts are to be worn the day of surgery. If you develop symptoms such as a fever, cold, or flu, or have other changes to your health within TWO DAYS of scheduled surgery or the morning of surgery, please contact the surgery center above. Personal Belongings: -Please have photo ID and insurance cards. -If you do not have a copy of advance directives on file with us, please bring a copy with you on the day of surgery. - Leave ALL valuables and money at home or with family members. For Outpatient Procedures: - YOU MUST HAVE A RESPONSIBLE LEASING DIRECTOR TAKE YOU HOME. A MOTOR ASSEMBLY SUPERVISOR OR RN FIRST ASSIST CANNOT BE MADE A RESPONSIBLE LEASING DIRECTOR. - We recommend that a responsible person stays with you overnight to take care of you. - You cannot stay in a hotel alone after outpatient surgery. You will not be permitted to have your surgery, if you do not have someone to take care of you. Arrival Time for Surgery: - The Surgery Center or hospital where you are having surgery will call the afternoon before surgery (or Saturday for Saturday surgery) with a scheduled arrival time. - If you have not heard by 4 pm, please contact the surgery center above. Please be aware that emergency situations arise, which may delay or change your surgical time. If this happens, we will notify you as soon as possible and regret any inconvenience. If you already have an Advance Directive, please fax a copy to [phone] or email to [email or web address] for it to be added to your chart. If you do not have an Advance Directive, you can find the appropriate form and more information at [email or web address]. We recommend that you complete the Advance Directive form found on the website and bring it with you the day of your surgery. It can be witnessed and scanned into your chart that day. Isabelle Kwon RN Allergies As of Date: 06/10/2023 (No Known Allergies) Date Reviewed: 05/22/2023 Reviewed by: Shelbie Main MD - Fully Assessed Reason for Visit: Preparations For Surgery [898] Cmt: Pre-op Instructions Prescriptions as of 06/10/2023 - amLODIPine (NORVASC) 5 mg tablet Take by mouth once daily. - docusate sodium (COLACE) 100 mg capsule Take 100 mg by mouth two times a day. Problem List As Of Date: 06/10/2023 (None) Encounter Status:Closed by ISABELLE KWON on 06/10/23 [facility] 05-29-2023 [facility] Telephone (JOE) JOSÉ PAYNE ([id number]) 1975 M Date Time Provider Department 05/29/23 [facility] During your visit today, we recorded the following information about you: Evie Hilario RN 05/29/2023 10:01 AM Signed FMLA paper work filled out and signed by Provider. Reviewed with patient. Faxed to [employer] Confirmation received. Records sent to be scanned to chart. Encounter closed. Allergies As of Date: 05/29/2023 (No Known Allergies) Date Reviewed: 05/22/2023 Reviewed by: Shelbie Main MD - Fully Assessed Reason for Visit: FMLA Paperwork [6472] Prescriptions as of 05/29/2023 - amLODIPine (NORVASC) 5 mg tablet Take by mouth once daily. - docusate sodium (COLACE) 100 mg capsule Take 100 mg by mouth two times a day. Problem List As Of Date: 05/29/2023 (None) Encounter Status:Closed by EVIE HILARIO on 05/29/23 [facility] 05-22-2023 [facility] Office Visit (GENSBR ) JOSÉ PAYNE ([id number]) 1975 M Date Time Provider Department 05/22/23 10:00 AM [facility] During your visit today, we recorded the following information about you: Pulse Blood pressure Weight Height 71/minute 123/87 96.6 kg 1.905 m Shelbie Main MD 05/22/2023 10:30 AM Signed PATIENT SURGERY PREOPERATIVE INSTRUCTIONS Your doctor has scheduled you for your procedure at the surgery center: [facility] [address] [facility] [address] [place] [address] Entrance A - Take elevators to 1st floor Outpatient Surgery Desk Please read below carefully for your personalized instructions. Pre-Admission Testing- will call you as needed. If you need to call [phone] Dietary Instructions- Nothing to eat or drink after midnight. Medications- You make take medication with sips of water. Blood Thinning Medications- If you take any blood thinners, please contact prescribing doctor. Stop aspirin 7 days before surgery as directed by your surgeon. Tylenol AND Ibuprofen ok. For Outpatient Procedures- You must have a responsible semi driver take you home. (no cab or taxi) We recommend a responsible person stays with you overnight to take care of you. You cannot stay in a hotel alone after outpatient surgery. You will not be permitted to have your surgery if you do not have someone to take care of you. Arrival Time for Surgery- The surgery center will call the afternoon before surgery or (Saturday for Saturday) with a scheduled arrival time. If you have not heard by 4:00pm for arrival time, call [phone] or [phone]. Any other questions, feel free to call me [phone] or Nai [phone]. Thank You ~ Tanisha Person Thank you for choosing [facility] for your procedural needs. Shelbie Main MD 05/22/2023 7:48 PM Signed General Surgeon Consult Note PATIENT NAME: José Payne Consultation requested by Dr. Lloyd Newell for an opinion regarding acute cholecystectomy/gallsto arnol. My final recommendations will be communicated back to the requesting physician by way of shared Medical record or letter to requesting physician via US mail. Assessment ASSESSMENT/PLAN: (K80.20) Symptomatic cholelithiasis (primary encounter diagnosis) Dean presents with symptomatic cholelithiasis. Clinically there is no evidence for acute cholecystitis and he is feeling better. We discussed proceeding with rizwana holman. Risks including bleeding, infection, common bile duct injury, bile leak were explained and he would like to proceed. Surgery is scheduled for June 17. His postop restrictions include no lifting more than 15 pounds for 4 weeks. Office Visit on 05/22/23 amLODIPine (NORVASC) 5 mg tablet docusate sodium (COLACE) 100 mg capsule SURGICAL REQUEST - ELECTIVE (11/2019) SUBJECTIVE CHIEF COMPLAINT: Patient presents with: Abdominal Pain: Gallbladder INTERVAL HISTORY OF PRESENT ILLNESS: José is a 48-year-old gentleman who presented with rectal quadrant pain and pressure starting on April 27. This occurred after eating. This was associated with bloody emesis. He was seen in the ER and diagnosed with gallstones. He was told they at he has 2 large gallstones present. He was also found to have hypertension. He was sent to his primary care physician and started on a blood pressure medication. He was then referred to GI, Dr. Newell. HIDA scan was performed which showed nonvisualization of the gallbladder concerning for acute cholecystitis. Upper and lower endoscopies were also performed. He is feeling much better on a low-fat diet. He has had another single episode which resolved. He has minimal discomfort now. He denies nausea or vomiting. He was referred by Dr. Newell for surgical evaluation. HISTORIES: PAST MEDICAL HISTORY Diagnosis Date Hypertension PAST SURGICAL HISTORY Procedure Laterality Date COLONOSCOPY EGD W/O [facility] SPEC VARICIES INJ N/A 05/15/2023 ALLERGIES: Patient has no known allergies. MEDICATIONS: Current Outpatient Medications Medication Sig amLODIPine (NORVASC) 5 mg tablet Take by mouth once daily. docusate sodium (COLACE) 100 mg capsule Take 100 mg by mouth two times a day. No current facility-administered medications for this visit. History reviewed. No pertinent family history. Social History Tobacco Use Smoking status: Former Types: Cigarettes OBJECTIVE PHYSICAL EXAM: BP 123/87 Pulse 71 Ht 6' 3 (1.91m) Wt 213 lb (96.6kg) BMI 26.62 kg/(m2). General: Well developed, well-nourished, in no distress HEENT: Normocephalic, atraumatic. Extraocular movements intact. Sclera are nonicteric. Heart: Regular rate and rhythm, no murmur Lungs: Clear to auscultation, without wheezes Abdomen: Soft, non tender, positive bowel sounds, no masses, no hernia, negative Cleveland sign Rec (more content not included)... Normal [facility] Vital Signs Date Time Vital Sign Value Performing Clinician Logan aleman 09-16-2024 08:25-0400 Body height 190.5 cm Diaz Leonardo MD Work Phone: [facility] 09-16-2024 08:25-0400 Body mass index (BMI) [Ratio] 28.87 kg/m2 Diaz Leonardo MD Work Phone: [facility] 09-16-2024 08:25-0400 Body temperature 97.5 [degF] Diaz Leonardo MD Work Phone: [facility] 09-16-2024 08:25-0400 Body weight 104.78 kg Diaz Leonardo MD Work Phone: [facility] 09-16-2024 08:25-0400 Diastolic blood pressure 86 mm[Hg] Diaz Leonardo MD Work Phone: [facility] 09-16-2024 08:25-0400 Heart rate 79 /min Diaz Leonardo MD Work Phone: [facility] 09-16-2024 08:25-0400 Respiratory rate 18 /min Diaz Leonardo MD Work Phone: [facility] 09-16-2024 08:25-0400 SaO2% (BldA) [Mass fraction] 98 % Diaz Leonardo MD Work Phone: [facility] 09-16-2024 08:25-0400 Systolic blood pressure 134 mm[Hg] Diaz Leonardo MD Work Phone: [facility] 05-18-2024 17:30-0500 Body height 190.5 cm [facility] 05-18-2024 17:30-0500 Body mass index (BMI) [Ratio] 28.9 kg/m2 [facility] 05-18-2024 17:30-0500 Body temperature 99.8 [degF] [facility] 05-18-2024 17:30-0500 Body weight 104.89 kg [facility] 05-18-2024 17:30-0500 Diastolic blood pressure 86 mm[Hg] [facility] 05-18-2024 17:30-0500 Heart rate 82 /min [facility] 05-18-2024 17:30-0500 Respiratory rate 16 /min [facility] 05-18-2024 17:30-0500 SaO2% (BldA) [Mass fraction] 95 % [facility] 05-18-2024 17:30-0500 Systolic blood pressure 134 mm[Hg] [facility] 03-18-2024 09:26-0500 Body height 190.5 cm Sonia Goznalez MILL TENDER SECOND OPERATOR Work Phone: [facility] 03-18-2024 09:26-0500 Body mass index (BMI) [Ratio] 29.62 kg/m2 Sonia Gonzalez MILL TENDER SECOND OPERATOR Work Phone: [facility] 03-18-2024 09:26-0500 Body temperature 98.1 [degF] Sonia Gonzalez MILL TENDER SECOND OPERATOR Work Phone: [facility] 03-18-2024 09:26-0500 Body weight 107.5 kg Sonia Gonzalez MILL TENDER SECOND OPERATOR Work Phone: [facility] 03-18-2024 09:26-0500 Diastolic blood pressure 88 mm[Hg] Sonia Gonzalez MILL TENDER SECOND OPERATOR Work Phone: [facility] 03-18-2024 09:26-0500 Heart rate 90 /min Sonai Gonzalez MILL TENDER SECOND OPERATOR Work Phone: [facility] 03-18-2024 09:26-0500 Respiratory rate 16 /min Sonia Jonespatrick MILL TENDER SECOND OPERATOR Work Phone: [facility] 03-18-2024 09:26-0500 SaO2% (BldA) [Mass fraction] 97 % Sonia Gonzalez MILL TENDER SECOND OPERATOR Work Phone: [facility] 03-18-2024 09:26-0500 Systolic blood pressure 138 mm[Hg] Sonia Gonzalez MILL TENDER SECOND OPERATOR Work Phone: [facility] 05-22-2023 10:15-0500 Body height 190.5 cm Shelbie Main MD Work Phone: [facility] 05-22-2023 10:15-0500 Body weight 96.62 kg Shelbie Main MD Work Phone: [facility] 05-22-2023 10:15-0500 Diastolic blood pressure 87 mm[Hg] Shelbie Main MD Work Phone: [facility] 05-22-2023 10:15-0500 Heart rate 71 /min Shelbie Main MD Work Phone: [facility] 05-22-2023 10:15-0500 Systolic blood pressure 123 mm[Hg] Shelbie Main MD Work Phone: [facility] 05-16-2023 10:06-0500 Body height 190.5 cm Shaikh Vani MANNING Work Phone: [facility] 05-16-2023 10:06-0500 Body mass index (BMI) [Ratio] 26.62 kg/m2 Shaikh Vani MANNING Work Phone: [facility] 05-16-2023 10:06-0500 Body temperature 98.6 [degF] Shaikh Vani MANNING Work Phone: [facility] 05-16-2023 10:06-0500 Body weight 96.62 kg Shaikh Vani MANNING Work Phone: [facility] 05-16-2023 10:06-0500 Diastolic blood pressure 80 mm[Hg] Shaikh Vani MANNING Work Phone: [facility] 05-16-2023 10:06-0500 Heart rate 95 /min Shaikh Vani MANNING Work Phone: [facility] 05-16-2023 10:06-0500 SaO2% (BldA) [Mass fraction] 96 % Shaikh Vani MANNING Work Phone: [facility] 05-16-2023 10:06-0500 Systolic blood pressure 110 mm[Hg] Shaikh Vani MANNING Work Phone: [facility] Healthcare Encounters Encounter Date Encounter Type Care Provider Facility Start: 09-16-2024 End: 09-16-2024 Arline flowscarlotta Leonardo MD Work Phone: [facility] Start: 09-16-2024 End: 09-16-2024 Arline flowscarlotta Leonardo MD Work Phone: [facility] Start: 09-16-2024 End: 09-16-2024 Patient encounter procedure Diaz Leonardo MD Work Phone: [facility] Work Phone: Start: 09-16-2024 End: 09-16-2024 Periodic preventive med est patient 40-64yrs Diaz Leonardo MD Work Phone: [facility] Comment on above: Annual physical exam (Primary Dx); Primary hypertension (CMS/HCC); Primary insomnia Start: 05-18-2024 End: 05-18-2024 ambulatory [facility] Work Phone: Start: 05-18-2024 End: 05-18-2024 [facility] Work Phone: Start: 03-18-2024 End: 03-18-2024 Bamboo flowsheet Sonia Gonzalez MILL TENDER SECOND OPERATOR Work Phone: [facility] Start: 03-18-2024 End: 03-18-2024 Bamboo flowsheet Sonia Gonzalez MILL TENDER SECOND OPERATOR Work Phone: [facility] Start: 03-18-2024 End: 03-18-2024 Office outpatient visit 15 minutes Sonia Gonzalez MILL TENDER SECOND OPERATOR Work Phone: [facility] Comment on above: Primary hypertension (CMS/HCC) (Primary Dx); Pro's esophagus determined by endoscopy Start: 03-18-2024 End: 03-18-2024 ambulatory SONIA GONZALEZ Not Available Start: 10-07-2023 End: 10-07-2023 ambulatory SHAIKH VANI Not Available Start: 10-07-2023 Patient encounter status Ronel any Gonzalez MILL TENDER SECOND OPERATOR Work Phone: [facility] Start: 07-10-2023 End: 07-10-2023 ambulatory [facility] Facility:[facility] Start: 07-10-2023 End: 07-10-2023 Patient encounter procedure Shelbie Main MD Work Phone: General Surgery Comment on above: Status post laparosc opic cholecystectomy (Primary Dx) Start: 07-01-2023 End: 07-01-2023 ambulatory SHAIKH VANI Not Available Start: 06-18-2023 End: 06-18-2023 ambulatory [facility] Facility:[facility] Start: 06-10-2023 Telephone encounter Shelbie Main MD Work Phone: Pre Anesthesia Comment on above: Preparations For Blaise shobha (Pre-op Instructions) Start: 05-29-2023 Telephone encounter Shelbie Main MD Work Phone: General Surgery Comment on above: FMLA Paperwork Start: 05-22-2023 End: 05-22-2023 ambulatory [facility] Facility:[facility] Start: 05-22-2023 End: 05-22-2023 Patient encounter procedure Shelbie Main MD Work Phone: General Surgery Comment on above: Symptomatic cholelit hiasis (Primary Dx) Start: 05-16-2023 Arline Ludwig MD Work Phone: [facility] Start: 05-16-2023 Arline Ludwig MD Work Phone: [facility] Start: 05-16-2023 End: 05-16-2023 Office outpatient visit 25 minutes Shaikh Vani MANNING Work Phone: [facility] Comment on above: Primary hypertension (CMS/HCC) (Primary Dx); Chronic idiopathic constipation; Calculus of gallbladder without cholecystitis without obstruction; Hiatal hernia with GERD and esophagitis; Pro's esophagus determined by endoscopy; Personal history of colonic polyps Start: 05-16-2023 End: 05-16-2023 ambulatory SHAIKH VANI Not Available Start: 05-08-2023 End: 05-08-2023 ambulatory SHAIKH VANI Not Available Start: 09-28-2016 End: 09-28-2016 Ambulatory LAVON ADAM Facility:[facility] Procedures Date Procedure Procedure Detail Performing Clinician Start: 07-01-2023 History of cholecystectomy S/P laparoscopic cholecystectomy Sonia Gonzalez NP Work Phone: Start: 05-15-2023 Colonoscopy Shaikh Vani MANNING Work Phone: History of cholecystectomy Status post laparoscopic cholecystectomy Shelbie Main MD Work Phone: Plan of Treatment Date Care Activity Detail Author Start: 05-15-2033 Screening for malign ant neoplasm of colon [facility] Start: 12-21-2024 End: 12-21-2024 Patient encounter procedure 12/21/2024 8:15 AM EDT Office Visit [facility] [address] [place] [address] Diaz Leonardo MD [address] [place] [id number] [facility] Start: 09-16-2024 End: 09-16-2025 Basic metabolic 1998 panel - Serum or Plasma Basic metabolic panel Lab Routine Annual physical exam Expected: 09/16/2024 (Approximate), Expires: 09/16/2025 [facility] Comment on above: Expected: 09/16/2024 (Approximate), Expires: 09/16/2025 Start: 09-16-2024 End: 09-16-2025 CBC W Auto Differential panel - Blood CBC and differential Lab Routine Annual physical exam Expected: 09/16/2024 (Approximate), Expires: 09/16/2025 [facility] Comment on above: Expected: 09/16/2024 (Approximate), Expires: 09/16/2025 Start: 09-16-2024 End: 09-16-2025 Hemoglobin A1c/Hemoglobin.total in Blood Hemoglobin A1c Lab Routine Annual physical exam Expected: 09/16/2024 (Approximate), Expires: 09/16/2025 [facility] Comment on above: Expected: 09/16/2024 (Approximate), Expires: 09/16/2025 Start: 09-16-2024 End: 09-16-2025 Hepatic function 2000 panel - Serum or Plasma Hepatic function panel Lab Routine Annual physical exam Expected: 09/16/2024 (Approximate), Expires: 09/16/2025 [facility] Comment on above: Expected: 09/16/2024 (Approximate), Expires: 09/16/2025 Start: 09-16-2024 End: 09-16-2025 Lipid 1996 panel - Serum or Plasma Lipid panel Lab Routine Annual physical exam Expected: 09/16/2024 (Approximate), Expires: 09/16/2025 [facility] Comment on above: Expected: 09/16/2024 (Approximate), Expires: 09/16/2025 Start: 09-16-2024 End: 09-16-2025 Prostate specific Ag [Mass/volume] in Serum or Plasma PSA Lab Routine Annual physical exam Expected: 09/16/2024 (Approximate), Expires: 09/16/2025 [facility] Comment on above: Expected: 09/16/2024 (Approximate), Expires: 09/16/2025 Start: 09-16-2024 End: 09-16-2025 Testosterone [Mass/volume] in Serum or Plasma Testosterone Lab Routine Annual physical exam Expected: 09/16/2024 (Approximate), Expires: 09/16/2025 [facility] Work Phone: Comment on above: Expected: 09/16/2024 (Approximate), Expires: 09/16/2025 Start: 09-16-2024 End: 09-16-2025 Thyrotropin [Units/volume] in Serum or Plasma TSH Lab Routine Annual physical exam Expected: 09/16/2024 (Approximate), Expires: 09/16/2025 [facility] Healthcare Comment on above: Expected: 09/16/2024 (Approximate), Expires: 09/16/2025 Start: 09-16-2024 End: 09-16-2024 Patient encounter procedure [facility] Comment on above: Arrived Start: 05-13-2024 Influenza vaccination Influenza Vacc ine (#1) [facility] Comment on above: Postponed from 12/07 (Patient Refused) Start: 03-18-2024 End: 03-18-2024 Patient encounter procedure 03/18/2024 9:30 AM EST Office Visit [facility] [address] [place] [address] Sonia Gonzalez NP [address] [place] [address] Arrived [facility] Comment on above: Arrived Start: 12-08-2023 Influenza vaccination C [facility] Start: 07-15-2023 End: 07-15-2023 Patient encounter procedure 07/15/2023 4:45 PM EDT Office Visit [facility] [address] [place] [address] Shaikh Ludwig MD [address] [place] [phone] [facility] Start: 07-01-2023 End: 07-01-2023 Patient encounter procedure 07/01/2023 4:30 PM EDT Office Visit [facility] [address] [place] [address] Shaikh Ludwig MD [address] [place] [phone] [facility] Start: 05-16-2023 End: 05-16-2023 Patient encounter procedure 05/16/2023 10:00 AM EST Office Visit [facility] [address] [place] [address] Shaikh Ludwig MD [address] [place] [phone] Arrived [facility] Comment on above: Arrived Start: 04-08-2023 Behavioral Health Screening Behavioral Health Screening [facility] Start: 04-08-2023 Depression Assessment Depression Ass essment [facility] Start: 12-07-2022 Covid-19 Vaccine ( season) Covid-19 Vaccine ( season) [facility] Start: 12-07-2022 Influenza vaccination Influenza Vacc ine (#1) [facility] Start: 2022 Diabetes Screening Diabetes Screenin g [facility] Start: 2022 Screening for malign ant neoplasm of colon [facility] Start: 2012 Lipid panel Lipid Screening [facility] Start: 1996 Hepatitis B Vaccine (1 of 3 - 19+ 3-dose series) Hepatitis B Vaccine (1 of 3 - 19+ 3-dose series) [facility] Start: 1996 Urine microalbumin profile DTaP,Tdap,Td Vaccine (1 - Tdap) [facility] Start: 1995 Hepatitis C screening Hepatitis C Sc reening [facility] Start: 1995 HIV screening HIV Screening [facility] Start: 1977 Covid-19 Vaccine (#1) Covid-19 Vacci ne (#1) [facility] Start: 1977 Hepatitis B Vaccine (1 of 3 - 3-dose series) Hepatitis B Vaccine (1 of 3 - 3-dose series) [facility] Start: 1977 Screening for malign ant neoplasm of colon [facility] Influenza virus A an d B RNA and SARS-CoV-2 (COVID-19) N gene panel - Respiratory specimen by AURELIA with probe detection [facility] Payers Date Payer Category Payer Private Health Insurance [id number] 2023 Unknown [id number] 1977 Unknown [id number] 1977 Unknown [id number] 1977 Unknown [id number] 1977 Unknown [id number] 1977 Unknown [id number] 1959 Unknown [id number] Social History Date Type Detail Facility Start: 05-07-2023 Tobacco smoking stat us [facility] Smokes tobacco daily [facility] History of tobacco use Cigarette Smoker [facility] Start: 05-07-2023 End: 03-04-2024 Cigarettes smoked current (pack per day) - Reported 1 [facility] History of tobacco use Passive smoker [facility] Start: 05-07-2023 End: 07-01-2023 Tobacco use and exposure Smokeless tobacco non-user [facility] Start: 05-08-2023 End: 09-16-2024 Alcohol intake Lifetime non-drinker (finding) [facility] Start: 05-08-2023 End: 03-04-2024 Tobacco use panel [facility] Start: 1975 Sex Assigned At Not on file [facility] Start: 05-22-2023 End: 07-01-2023 Tobacco smoking status [facility] Ex-smoker [facility] History of tobacco use [facility] How often do you nee d to have someone help you when you read instructions, pamphlets, or other written material from your doctor or pharmacy [SILS] Never [facility] Do you belong to any clubs or organizations such as faith groups, unions, fraternal or athletic groups, or school groups? No [facility] Are you now , , , , never or living with a partner? [facility] How often to you hav e a drink containing alcohol? Never [facility] How hard is it for y ou to pay for the very basics like food, housing, medical care, and heating Hard [facility] Do you feel stress - tense, restless, nervous, or anxious, or unable to sleep at night because your mind is troubled all the time - these days [OSQ] To some extent [facility] (I/We) worried wheth er (my/our) food would run out before (I/we) got money to buy more. Never true [facility] Start: 05-18-2024 [facility] Start: 05-18-2024 Sex Male (finding) [facility] Start: 1975 Sex Assigned At Male F [facility] Clinical Notes 05-16-2023 to 09-16-2024 Diaz Leonardo MD - 09/16/2024 9:04 AM Jose A Leonardo MD - 09/16/2024 9:03 AM Jose A Leonardo MD - 09/16/2024 9:03 AM Jose A Leonardo MD - 09/16/2024 8:30 AM EDTPatient Instructions Note Date & Type Note Facility 09-16-2024 History of Presen t illness Narrative Associated Problem(s): Primary insomnia Not sleeping well and try restoril. Associated Problem(s): Primary hypertension (CMS/HCC) BP controlled and monitor PRN. Associated Problem(s): Annual physical exam Due for labs. Discussed proper diet and regular aerobic exercise. Need aerobic exercise 5-6 days a week for 30 minutes at a time. Smaller portions and limit total calories. Colonoscopy normal 05/15/2023. Tetanus every 10 years. Advised not to smoke. Images from the original note were not included. Subjective Patient ID: Dean Payne is a 49 y.o. male who presents for Follow-up (6M), Fatigue, and Insomnia. Presents for annual PE. Patient stable today. Weight down since last visit but up 18 pounds in past year. Remains active and lifts a lot at [...] 15 MG capsule documented in this encounter [facility] 03-18-2024 History of Presen t illness Narrative Associated Problem(s): Pro's esophagus determined by endoscopy Noted on Endoscopy Currently taking protonix. Continue current regimen. Follow up EGD will be due in the future. Associated Problem(s): Primary hypertension (CMS/HCC) Currently taking amlodipine 5mg Does not check BP at home; BP today at goal in office. Denies orthostatic changes, dizziness, cough, shortness of breath, swelling in extremities. Continue current regimen. Given BP log, advised pt to record BP and bring log back with them to next visit. Images from the original note were not included. Subjective Patient ID: José Payne is a 48 y.o. male who presents for Hypertension. HPI HTN: Currently taking amlodipine 5mg Does not check BP at home; BP today at goal in office. Denies orthostatic changes, dizziness, cough, shortness of breath, swelling in extremities. Continue current regimen. Given BP log, advised pt to record BP and bring log back with them to next visit. Review of Systems Constitutional: Negative for activity change, appetite change, chills, diaphoresis, fatigue, fever and unexpected weight change. HENT: Negative for congestion, ear pain, rhinorrhea, sinus pressure, sinus pain, sneezing, sore throat, trouble swallowing and voice change. Eyes: Negative for visual disturbance. Respiratory: Negative for cough, chest tightness, shortness of breath and wheezing. Cardiovascular: Negative for chest pain, palpitations and leg swelling. Gastrointestinal: Negative for abdominal distention, abdominal pain, blood in stool, constipation, diarrhea and vomiting. Genitourinary: Negative for decreased urine volume, dysuria, flank pain, frequency, hematuria and urgency. Musculoskeletal: Negative for arthralgias, gait problem, joint swelling and myalgias. Skin: Negative for rash. Neurological: Negative for dizziness, tremors, syncope, weakness, light-headedness and headaches. Psychiatric/Behavioral: Negative for decreased concentration and suicidal ideas. The patient is not nervous/anxious. Hematological: Does not bruise/bleed easily. Endocrine: Negative for cold intolerance, heat intolerance, polydipsia, polyphagia and polyuria. Objective Physical Exam Vitals reviewed. Constitutional: Appearance: Normal appearance. HENT: Right Ear: Tympanic membrane normal. Left Ear: Tympanic membrane normal. Nose: Nose normal. Mouth/Throat: Mouth: Mucous membranes are moist. Pharynx: Oropharynx is clear. Eyes: Pupils: Pupils are equal, round, and reactive to light. Cardiovascular: Rate and Rhythm: Normal rate and regular rhythm. Pulses: Normal pulses. Heart sounds: Normal heart sounds. Pulmonary: Effort: Pulmonary effort is normal. Breath sounds: Normal breath sounds. Abdominal: General: Abdomen is flat. Bowel sounds are normal. Palpations: Abdomen is soft. Skin: Capillary Refill: Capillary refill takes less than 2 seconds. Neurological: Mental Status: He is alert and oriented to person, place, and time. Assessment/Plan Problem List Items Addressed This Visit Primary hypertension (CMS/HCC) - Primary Currently taking amlodipine 5mg Does not check BP at home; BP today at goal in office. Denies orthostatic changes, dizziness, cough, shortness of breath, swelling in extremities. Continue current regimen. Given BP log, advised pt to record BP and bring log back with them to next visit. Relevant Medications amLODIPine (Norvasc) 5 MG tablet Pro's esophagus determined by endoscopy Noted on Endoscopy Currently taking protonix. Continue current regimen. Follow up EGD will be due in the future. Relevant Medications pantoprazole (ProtoNix) 40 MG EC tablet documented in this encounter [facility] 07-11-2023 Note HNO ID: [id number] Author: SHELBIE MAIN MD Service: ? Author Type: Physician Type: Progress Notes Filed: 07/11/2023 13:21 Note Text: HPI: José returns status post laparoscopic cholecystectomy for acute cholecystitis. He is doing well. EXAM: There were no vitals taken for this visit. Incisions are healing nicely. PATHOLOGY: FINAL DIAGNOSIS A. Gallbladder, cholecystectomy: - Chronic cholecystitis with erosion and focal edematous stroma, no evidence of dysplasia (see comment). - Cholelithiasis. ASSESSMENT: (Z90.49) Status post laparoscopic cholecystectomy (primary encounter diagnosis) José returns status post laparoscopic cholecystectomy for acute cholecystitis. He has had an uncomplicated postoperative course. He can return to see me as needed. Office Visit on 07/10/[address] (PROTONIX) 40 mg tablet Shelbie Main MD [facility] 07-11-2023 History of Presen t illness Narrative HPI: José returns status post laparoscopic cholecystectomy for acute cholecystitis. He is doing well. EXAM: There were no vitals taken for this visit. Incisions are healing nicely. PATHOLOGY: FINAL DIAGNOSIS A. Gallbladder, cholecystectomy: - Chronic cholecystitis with erosion and focal edematous stroma, no evidence of dysplasia (see comment). - Cholelithiasis. ASSESSMENT: (Z90.49) Status post laparoscopic cholecystectomy (primary encounter diagnosis) José returns status post laparoscopic cholecystectomy for acute cholecystitis. He has had an uncomplicated postoperative course. He can return to see me as needed. Office Visit on 07/10/[address] (PROTONIX) 40 mg tablet Shelbie Main MD documented in this encounter [facility] 06-18-2023 Note HNO ID: [id number] Author: ROSELYN DURAN APRN.PATIENT RELATIONS LIAISON Service: Anesthesiology Author Type: Nurse Magistrate Judge Type: Anesthesia Procedure Notes Filed: 06/18/2023 10:48 Note Text: ANESTHESIOLOGY PROCEDURE NOTE Airway General Information Procedure Start Time/Medication Administration: 06/18/2023 10:10 AM Patient location during procedure: OR Timeout Performed Pre-procedure: timeout performed Consent Obtained: Yes Patient identity confirmed: arm band, care swat team member and patient Staffing PATIENT RELATIONS LIAISON: Roselyn Duran APRN.PATIENT RELATIONS LIAISON Performed by: PATIENT RELATIONS LIAISON Indications and Patient Condition Indications for airway management: anesthesia Preoxygenated: yes anesthesia circuit Patient position: sniffing Method: asleep Cricoid Pressure: Yes Manual In-Line Stabilization: No Difficult Mask: No Airway Accessory: oral airway Final Airway Details Final airway type: endotracheal airway Final Endotracheal Airway: ETT Cuffed: yes Successful intubation technique: video laryngoscopy Devices used: Glidescope Endotracheal tube insertion site: oral Blade size: #4 ETT size (mm): 7.5 Measured from: lips Measurement (cm): 24 Placement verified by: capnometry Cormack-Lehane Classification: grade I - full view of glottis Number of attempts at approach: 3 or more Ventilation between attempts: BVM Other Attempts Unsuccessful attempted endotracheal techniques: direct laryngoscopy and video laryngoscopy Failed airway: no Unrecognized esophageal intubation: no Airway not difficult Comments 3 Attempts. Anterior airway; Unable to view with direct laryngoscopy; Grade III view with Johnson, unable to advance ETT; Grade I view with glidescope; Pt easy mask and ventilated without desaturation until airway was secured. SIGNATURE: Roselyn Duran APRN.PATIENT RELATIONS LIAISON PATIENT NAME: José Payne DATE: June 18, 2023 TIME: 10:23 AM CSN: [id number] [facility] 06-10-2023 Miscellaneous Notes Attempted to call instructions no answer,mailbox hasn't been set up. PATIENT PREOPERATIVE INSTRUCTIONS Dr Main has scheduled you for your procedure at this surgery center:06/18/23 [facility]: [phone] -- [address] [facility] [address]. Please read below carefully for your personalized instructions. Dietary Restrictions: - No solid food after midnight. - You may have 12 ounces of clear liquids (water, clear juices such as apple juice or gatorade, carbonated beverages, clear tea, black coffee, jello) until 2 hours before scheduled arrival at facility. - Do not drink any alcohol after midnight the night before your surgery. Medications: Unless instructed differently below, stay on all of your medications until your surgery. If you start any new medications after today's visit, please contact your surgeon. Take Amlodipine with a sip of water if normaly taken in the AM If you take any medications for erectile dysfunction-Cialis (Tadalafil), Levitra, Staxyn (Vardenafil) Viagra (Sildenenafil please do not take these for 48 hours before surgery. If you start any new medications after today's visit, please contact the surgeon's office. Blood Thinning Medications: - Stop NSAIDS (Ibuprofen, Advil, Aleve, Motrin, Celebrex, Mobic, etc.) 7 days before surgery, as directed by your surgeon. - Stop Aspirin 7 days before surgery, as directed by your surgeon. - Stop Vitamin E, ALL multi-vitamins, herbals and dietary supplements 7 days before surgery. - You may take Tylenol (Acetaminophen) or any of your pain medications that do not contain aspirin or NSAIDS as needed. Important Reminders: - If you are prescribed inhalers for breathing, continue using them. - Candy, mints, and tobacco products are NOT permitted the morning of surgery. - Hearing aids, dentures and glasses may be worn the morning of surgery. - NO jewelry, body piercings, makeup, hairpins or contacts are to be worn the day of surgery. If you develop symptoms such as a fever, cold, or flu, or have other changes to your health within TWO DAYS of scheduled surgery or the morning of surgery, please contact the surgery center above. Personal Belongings: -Please have photo ID and insurance cards. -If you do not have a copy of advance directives on file with us, please bring a copy with you on the day of surgery. - Leave ALL valuables and money at home or with family members. For Outpatient Procedures: - YOU MUST HAVE A RESPONSIBLE LEASING DIRECTOR TAKE YOU HOME. A MOTOR ASSEMBLY SUPERVISOR OR RN FIRST ASSIST CANNOT BE MADE A RESPONSIBLE LEASING DIRECTOR. - We recommend that a responsible person stays with you overnight to take care of you. - You cannot stay in a hotel alone after outpatient surgery. You will not be permitted to have your surgery, if you do not have someone to take care of you. Arrival Time for Surgery: - The Surgery Center or hospital where you are having surgery will call the afternoon before surgery (or Saturday for Saturday surgery) with a scheduled arrival time. - If you have not heard by 4 pm, please contact the surgery center above. Please be aware that emergency situations arise, which may delay or change your surgical time. If this happens, we will notify you as soon as possible and regret any inconvenience. If you already have an Advance Directive, please fax a copy to [phone] or email to for it to be added to your chart. If you do not have an Advance Directive, you can find the appropriate form and more information at [email or web address]. We recommend that you complete the Advance Directive form found on the website and bring it with you the day of your surgery. It can be witnessed and scanned into your chart that day. Isabelle Kwon RN documented in this encounter [facility] 05-29-2023 Miscellaneous Notes FMLA paper work filled out and signed by Provider. Reviewed with patient. Faxed to [employer] Abigail Confirmation received. Records sent to be scanned to chart. Encounter closed. documented in this encounter [facility] 05-22-2023 Note HNO ID: [id number] Author: SHELBIE MAIN MD Service: ? Author Type: Physician Type: Progress Notes Filed: 05/22/2023 19:48 Note Text: General Surgeon Consult Note PATIENT NAME: José Payne Consultation requested by Dr. Lloyd Newell for an opinion regarding acute cholecystectomy/gallstones. My final recommendations will be communicated back to the requesting physician by way of shared Medical record or letter to requesting physician via [place] mail. Assessment ASSESSMENT/PLAN: (K80.20) Symptomatic cholelithiasis (primary encounter diagnosis) Dean presents with symptomatic cholelithiasis. Clinically there is no evidence for acute cholecystitis and he is feeling better. We discussed proceeding with lap manda. Risks including bleeding, infection, common bile duct injury, bile leak were explained and he would like to proceed. Surgery is scheduled for June 17. His postop restrictions include no lifting more than 15 pounds for 4 weeks. Office Visit on 05/22/23 amLODIPine (NORVASC) 5 mg tablet docusate sodium (COLACE) 100 mg capsule SURGICAL REQUEST - ELECTIVE (11/2019) SUBJECTIVE CHIEF COMPLAINT: Patient presents with: Abdominal Pain: Gallbladder INTERVAL HISTORY OF PRESENT ILLNESS: José is a 48-year-old gentleman who presented with rectal quadrant pain and pressure starting on April 27. This occurred after eating. This was associated with bloody emesis. He was seen in the ER and diagnosed with gallstones. He was told they at he has 2 large gallstones present. He was also found to have hypertension. He was sent to his primary care physician and started on a blood pressure medication. He was then referred to GI, Dr. Newell. HIDA scan was performed which showed nonvisualization of the gallbladder concerning for acute cholecystitis. Upper and lower endoscopies were also performed. He is feeling much better on a low-fat diet. He has had another single episode which resolved. He has minimal discomfort now. He denies nausea or vomiting. He was referred by Dr. Newell for surgical evaluation. HISTORIES: PAST MEDICAL HISTORY Diagnosis Date Hypertension PAST SURGICAL HISTORY Procedure Laterality Date COLONOSCOPY EGD W/O [facility] SPEC VARICIES INJ N/A 05/15/2023 ALLERGIES: Patient has no known allergies. MEDICATIONS: Current Outpatient Medications Medication Sig amLODIPine (NORVASC) 5 mg tablet Take by mouth once daily. docusate sodium (COLACE) 100 mg capsule Take 100 mg by mouth two times a day. No current facility-administered medications for this visit. History reviewed. No pertinent family history. Social History Tobacco Use Smoking status: Former Types: Cigarettes OBJECTIVE PHYSICAL EXAM: BP 123/87 Pulse 71 Ht 6' 3 (1.91m) Wt 213 lb (96.6kg) BMI 26.62 kg/(m2). General: Well developed, well-nourished, in no distress HEENT: Normocephalic, atraumatic. Extraocular movements intact. Sclera are nonicteric. Heart: Regular rate and rhythm, no murmur Lungs: Clear to auscultation, without wheezes Abdomen: Soft, non tender, positive bowel sounds, no masses, no hernia, negative Cleveland sign Rectal: Not evaluated Extremities: No edema Neurologic: Alert, oriented, and appropriate. DATA: Diagnostic tests reviewed for today's visit: Ultrasound-stones HIDA scan-nonvisualization of the gallbladder Shelbie Main MD [facility] 05-22-2023 History of Presen t illness Narrative General Surgeon Consult Note PATIENT NAME: José Payne Consultation requested by Dr. Lloyd Newell for an opinion regarding acute cholecystectomy/gallstones. My final recommendations will be communicated back to the requesting physician by way of shared Medical record or letter to requesting physician via [place] mail. Assessment ASSESSMENT/PLAN: (K80.20) Symptomatic cholelithiasis (primary encounter diagnosis) Dean presents with symptomatic cholelithiasis. Clinically there is no evidence for acute cholecystitis and he is feeling better. We discussed proceeding with rizwana hindse. Risks including bleeding, infection, common bile duct injury, bile leak were explained and he would like to proceed. Surgery is scheduled for June 17. His postop restrictions include no lifting more than 15 pounds for 4 weeks. Office Visit on 05/22/23 amLODIPine (NORVASC) 5 mg tablet docusate sodium (COLACE) 100 mg capsule SURGICAL REQUEST - ELECTIVE (11/2019) SUBJECTIVE CHIEF COMPLAINT: Patient presents with: Abdominal Pain: Gallbladder INTERVAL HISTORY OF PRESENT ILLNESS: José is a 48-year-old gentleman who presented with rectal quadrant pain and pressure starting on April 27. This occurred after eating. This was associated with bloody emesis. He was seen in the ER and diagnosed with gallstones. He was told they at he has 2 large gallstones present. He was also found to have hypertension. He was sent to his primary care physician and started on a blood pressure medication. He was then referred to GI, Dr. Newell. HIDA scan was performed which showed nonvisualization of the gallbladder concerning for acute cholecystitis. Upper and lower endoscopies were also performed. He is feeling much better on a low-fat diet. He has had another single episode which resolved. He has minimal discomfort now. He denies nausea or vomiting. He was referred by Dr. Newell for surgical evaluation. HISTORIES: PAST MEDICAL HISTORY Diagnosis Date Hypertension PAST SURGICAL HISTORY Procedure Laterality Date COLONOSCOPY EGD W/O [facility] SPEC VARICIES INJ N/A 05/15/2023 ALLERGIES: Patient has no known allergies. MEDICATIONS: Current Outpatient Medications Medication Sig amLODIPine (NORVASC) 5 mg tablet Take by mouth once daily. docusate sodium (COLACE) 100 mg capsule Take 100 mg by mouth two times a day. No current facility-administered medications for this visit. History reviewed. No pertinent family history. Social History Tobacco Use Smoking status: Former Types: Cigarettes OBJECTIVE PHYSICAL EXAM: BP 123/87 Pulse 71 Ht 6' 3 (1.91m) Wt 213 lb (96.6kg) BMI 26.62 kg/(m^2). General: Well developed, well-nourished, in no distress HEENT: Normocephalic, atraumatic. Extraocular movements intact. Sclera are nonicteric. Heart: Regular rate and rhythm, no murmur Lungs: Clear to auscultation, without wheezes Abdomen: Soft, non tender, positive bowel sounds, no masses, no hernia, negative Cleveland sign Rectal: Not evaluated Extremities: No edema Neurologic: Alert, oriented, and appropriate. DATA: Diagnostic tests reviewed for today's visit: Ultrasound-stones HIDA scan-nonvisualization of the gallbladder Shelbie Main MD documented in this encounter [facility] 05-22-2023 Instructions Shelbie Main MD - 05/22/2023 10:30 AM EST Images from the original note were not included. PATIENT SURGERY PREOPERATIVE INSTRUCTIONS Your doctor has scheduled you for your procedure at the surgery center: [facility] [address] [place] [address] Entrance A - Take elevators to 1st floor Outpatient Surgery Desk Please read below carefully for your personalized instructions. Pre-Admission Testing- will call you as needed. If you need to call [phone] Dietary Instructions- Nothing to eat or drink after midnight. Medications- You make take medication with sips of water. Blood Thinning Medications- If you take any blood thinners, please contact prescribing doctor. Stop aspirin 7 days before surgery as directed by your surgeon. Tylenol & Ibuprofen ok. For Outpatient Procedures- You must have a responsible semi driver take you home. (no cab or taxi) We recommend a responsible person stays with you overnight to take care of you. You cannot stay in a hotel alone after outpatient surgery. You will not be permitted to have your surgery if you do not have someone to take care of you. Arrival Time for Surgery- The surgery center will call the afternoon before surgery or (Saturday for Saturday) with a scheduled arrival time. If you have not heard by 4:00pm for arrival time, call [phone] or [phone]. Any other questions, feel free to call me [phone] or Nai [phone]. Thank You ~ Tanisha Person Thank you for choosing [facility] for your procedural needs. documented in this encounter [facility] 05-16-2023 History of Presen t illness Narrative Associated Problem(s): Personal history of colonic polyps 4 polyps - largest 10 mm - awaiting pathology. 06/01 Will need repeat colonoscopy within 1-3 years based on pathology. Associated Problem(s): Pro's esophagus determined by endoscopy Noted on Endoscopy. Pending Biopsy results. Started on Protonix. Associated Problem(s): Hiatal hernia with GERD and esophagitis Noted on EGD - symptoms well controlled on Protonix - started on it by General Surgery. Associated Problem(s): Calculus of gallbladder without cholecystitis without obstruction RUQ and epigastric pain is now intermittent, associated nausea, pain is worse with food intake. Has had 2 ED visits to [facility], symptomatic cholelithiasis - had EGD, colonoscopy to r/o alternative etiology. Follow up appointment with Surgeon next week to discuss Cholecystectomy. Patient instructed to go to ED if persistent intractable pain, nausea, vomiting or fever. Patient cleared to return to work w/o restrictions. Associated Problem(s): Chronic idiopathic constipation Using Miralax and Colace. He just had Colonoscopy. He was still struggling with constipation and Colace did not help much. He was started on Miralax by the Surgeon. Associated Problem(s): Primary hypertension (CMS/HCC) BP well controlled. On average less than 130/90. Tolerating Anti hypertensive w/o adverse effects. Denies lightheadedness, dizziness, syncope, presyncope. Patient encouraged to continue with home BP monitoring and call office if he experiences orthostatic symptoms or persistently elevated BP. On Amlodipine. Subjective Patient ID: José Payne is a 48 y.o. male who presents for Follow-up. Feeling better. Has not had biliary colic for 3 days. Started on Protonix for GERD, barrettes esophagus. BP well controlled. Current Outpatient Medications on File Prior to Visit Medication Sig Dispense Refill amLODIPine (Norvasc) 5 MG tablet Take 1 tablet (5 mg) by mouth in the morning. 90 tablet 0 docusate sodium (Colace) 100 MG capsule Take 1 capsule (100 mg) by mouth in the morning and 1 capsule (100 mg) before bedtime. 60 capsule 0 pantoprazole (ProtoNix) 40 MG EC tablet Take 40 mg by mouth in the morning. promethazine (Phenergan) 25 MG tablet Take 25 mg by mouth every 6 (six) hours if needed for nausea or vomiting [DISCONTINUED] ketorolac (Toradol) 10 MG tablet Take 10 mg by mouth every 6 (six) hours if needed for severe pain [DISCONTINUED] ondansetron ODT (Zofran-ODT) 4 MG disintegrating tablet Take 4 mg by mouth every 8 (eight) hours if needed for nausea No current facility-administered medications on file prior to visit. No Known Allergies Review of System All systems negative except as mentioned in HPI. Visit Vitals BP 110/80 (BP Location: Left arm, Patient Position: Sitting, BP Cuff Size: Large adult) Pulse 95 Temp 98.6 F (Tympanic) Ht 6' 3 Wt 213 lb SpO2 96% BMI 26.62 kg/m Smoking Status Every Day BSA 2.26 m Patient Health Questionnaire-2 Score: 0 @LABRESULTS@ No images are attached to the encounter. Objective Comfortable, NAD. Doing well. Physical Exam General: Comfortable, NAD Resp: Normal RR, CTA b/l CVS: Normal HR, No mumur noted. GI: soft, non tender, non distended. Neuro: AAOX 3, moving all extremities. Assessment/Plan Problem List Items Addressed This Visit Calculus of gallbladder without cholecystitis without obstruction RUQ and epigastric pain is now intermittent, associated nausea, pain is worse with food intake. Has had 2 ED visits to [facility], symptomatic cholelithiasis - had EGD, colonoscopy to r/o alternative etiology. Follow up appointment with Surgeon next week to discuss Cholecystectomy. Patient instructed to go to ED if persistent intractable pain, nausea, vomiting or fever. Patient cleared to return to work w/o restrictions. Primary hypertension (CMS/HCC) - Primary BP well controlled. On average less than 130/90. Tolerating Anti hypertensive w/o adverse effects. Denies lightheadedness, dizziness, syncope, presyncope. Patient encouraged to continue with home BP monitoring and call office if he experiences orthostatic symptoms or persistently elevated BP. On Amlodipine. Chronic idiopathic constipation Using Miralax and Colace. He just had Colonoscopy. He was still struggling with constipation and Colace did not help much. He was started on Miralax by the Surgeon. Pro's esophagus determined by endoscopy Noted on Endoscopy. Pending Biopsy results. Started on Protonix. Personal history of colonic polyps 4 polyps - largest 10 mm - awaiting pathology. 06/01 Will need repeat colonoscopy within 1-3 years based on pathology. Hiatal hernia with GERD and esophagitis Noted on EGD - symptoms well controlled on Protonix - started on it by General Surgery. Follow up in about 2 months (around 07/15/2023). documented in this encounter [facility] Healthcare Evaluation note Diagnosis Primary hypertension (CMS/HCC)- Primary Unspecified essential hypertension Chronic idiopathic constipation Unspecified constipation Calculus of gallbladder without cholecystitis without obstruction Hiatal hernia with GERD and esophagitis Pro's esophagus determined by endoscopy Personal history of colonic polyps documented in this encounter [facility] HealthcareEvaluation note* Diagnosis Symptomatic cholelithiasis- Primary Calculus of gallbladder without mention of cholecystitis or obstruction Symptomatic cholelithiasis Calculus of gallbladder without mention of cholecystitis or obstruction [facility] Status post laparoscopic cholecystectomy- Primary Other postprocedural status [facility] Diagnosis Primary hypertension (CMS/HCC)- Primary Unspecified essential hypertension Calculus of gallbladder without cholecystitis without obstruction Chronic idiopathic constipation Unspecified constipation Encounter to establish care Primary hypertension (CMS/HCC)- Primary Unspecified essential hypertension Chronic idiopathic constipation Unspecified constipation Calculus of gallbladder without cholecystitis without obstruction Hiatal hernia with GERD and esophagitis Pro's esophagus determined by endoscopy Personal history of colonic polyps Chronic idiopathic constipation- Primary Unspecified constipation Pro's esophagus determined by endoscopy Primary hypertension (CMS/HCC) Unspecified essential hypertension S/P laparoscopic cholecystectomy Other postprocedural status Chronic idiopathic constipation- Primary Unspecified constipation Pro's esophagus determined by endoscopy Primary hypertension (CMS/HCC) Unspecified essential hypertension Hiatal hernia with GERD and esophagitis Wellness examination Primary hypertension (CMS/HCC)- Primary Unspecified essential hypertension Pro's esophagus determined by endoscopy documented in this encounter [facility] Healthcare[facility]* Diagnosis Onset Date Resolution Status Admit Date Bronchitis acute May 18, 2024 4:31pm [facility] Work Phone: Evaluation note* Diagnosis Primary hypertension (CMS/HCC)- Primary Unspecified essential hypertension Calculus of gallbladder without cholecystitis without obstruction Chronic idiopathic constipation Unspecified constipation Encounter to establish care Primary hypertension (CMS/HCC)- Primary Unspecified essential hypertension Chronic idiopathic constipation Unspecified constipation Calculus of gallbladder without cholecystitis without obstruction Hiatal hernia with GERD and esophagitis Pro's esophagus determined by endoscopy Personal history of colonic polyps Chronic idiopathic constipation- Primary Unspecified constipation Pro's esophagus determined by endoscopy Primary hypertension (CMS/HCC) Unspecified essential hypertension S/P laparoscopic cholecystectomy Other postprocedural status Chronic idiopathic constipation- Primary Unspecified constipation Pro's esophagus determined by endoscopy Primary hypertension (CMS/HCC) Unspecified essential hypertension Hiatal hernia with GERD and esophagitis Wellness examination Primary hypertension (CMS/HCC)- Primary Unspecified essential hypertension Pro's esophagus determined by endoscopy Annual physical exam- Primary Routine general medical examination at a health care facility Primary hypertension (CMS/HCC) Unspecified essential hypertension Primary insomnia Persistent disorder of initiating or maintaining sleep documented in this encounter [facility] Healthcare Summary Purpose Family History No Family History Records FoundNo Family History Records FoundNo Family History Records FoundNo Family History Records Found Advance Directives Advance Directive Response Recorded Date/ Time Advance Directives No May 4:30pm Chief Complaint and Reason for Visit Chief Complaint Admit Date Cough, congestion May 18, 2024 4:31pm Reason for Visit Admit Date Bronchitis May 18, 2024 4:31pm Additional Source Comments (unrecognized sect ion and content) No Status Records FoundNo Status Records FoundNo Status Records FoundNo Status Records Found INFORMATION SOURCE (unrecogn ized section and content) DATE CREATED AUTHOR 10/02/2017 [facility] DATE CREATED AUTHOR AUTHOR'S ORGANIZ ATION 06/25/2023 [facility] DATE CREATED AUTHOR AUTHOR'S ORGANIZ ATION 07/11/2023 [facility] DATE CREATED AUTHOR AUTHOR'S ORGANIZ ATION 03/21/2024 [facility] Care Teams (unrecognized sec tion and content) Shoe Cobbler Relationship Specialty Start Date End Date Shaikh Ludwig MD [address] [place] [address] PCP - General Internal Medicine 05/13/23 Shoe Cobbler Relationship Specialty Start Date End Date Shaikh Ludwig MD [address] [place] [address] PCP - General Internal Medicine 05/13/23 Shoe Cobbler Relationship Specialty Start Date End Date Shaikh Ludwig MD [address] [place] [address] PCP - General Primary Care 05/22/23 Shoe Cobbler Relationship Specialty Start Date End Date Shaikh Ludwig MD [address] [place] [address] PCP - General Primary Care 05/22/23 Shoe Cobbler Relationship Specialty Start Date End Date Shaikh Ludwig MD [address] [place] [address] PCP - General Primary Care 05/22/23 Shoe Cobbler Relationship Specialty Start Date End Date Shaikh Ludwig MD [address] [place] [phone] PCP - General Internal Medicine 05/13/23 Shoe Cobbler Relationship Specialty Start Date End Date Shaikh Ludwig MD [address] [place] [phone] PCP - General Internal Medicine 05/13/23 Team Status: Active Member Role Status Dates PHYSICIAN NO FAMILY Primary Care Provider Active Team Status: Inactive Member Role Status Dates PHYSICIAN NO FAMILY Primary Care Provider Active Start: May 18, 2024 End: May 18, 2024 Deborah Jolley APRN Attending Provider Active Start: May 18, 2024 End: May 18, 2024 Shoe Cobbler Relationship Specialty Start Date End Date Shaikh Ludwig MD [address] [place] [address] PCP - General Internal Medicine 05/13/23 Shoe Cobbler Relationship Specialty Start Date End Date Shaikh Ludwig MD [address] [place] [address] PCP - General Internal Medicine 05/13/23 Reason for Visit (unrecogniz ed section and content) Reason Comments Follow-up Reason Comments Abdominal Pain Gallbladder Reason Comments FMLA Paperwork Reason Comments Preparations For Surgery Pre-op Instruct ions Reason Comments Post-Op Visit 06/17 rizwana holman w/ gr ams by Dr. Main Reason Comments Hypertension Reason Comments Follow-up 6M Fatigue Insomnia Source Comments (unrecognize d section and content) In the event this informatio n is protected by the Federal Confidentiality of Alcohol and Drug Abuse Patient Records regulations: The Federal rules restrict any use of the information to criminally investigate or prosecute any alcohol or drug abuse patient.[facility] the event this information is protected by the Federal Confidentiality of Alcohol and Drug Abuse Patient Records regulations: The Federal rules restrict any use of the information to criminally investigate or prosecute any alcohol or drug abuse patient.[facility] the event this information is protected by the Federal Confidentiality of Alcohol and Drug Abuse Patient Records regulations: The Federal rules restrict any use of the information to criminally investigate or prosecute any alcohol or drug abuse patient.[facility] the event this information is protected by the Federal Confidentiality of Alcohol and Drug Abuse Patient Records regulations: The Federal rules restrict any use of the information to criminally investigate or prosecute any alcohol or drug abuse patient.[facility] Goals (unrecognized section and content) Goals may be documented in a n alternate section FOR RECORDS PERTAINING TO PATIENTS WHO ARE [...] BE BASED ON THE PRIMARY CLINICAL RECORDS. [facility]. provides no warranty or guarantee of the accuracy or completeness of information in this document.
--- OUTSIDE RECORDS SUMMARY | 2024-09-17 07:27 | XMS_ITS | Encounter Summary ---
Author Organization [facility] Address [address] [place] [address] Care Team Providers Care Compensation Intern Name Role Phone Shaikh KERRI Ludwig Primary Care Provider [phone] Encounter Details Date Type Department Care Team (Latest Contact Info) Description 09/09/2024 Travel Social History Tobacco Use Types Packs/Day Years [...] Never 03/04/2024 How often do you attend judaism or restorationism serv ices? Never 03/04/2024 Do you belong to any clubs o r organizations such as judaism groups, unions, fraternal or athletic groups, or [...] Recorded Patient Health Questionnaire-2 Score 0 10/07/2023 [facility] - [...] any time in the past 12 m [facility], were you homeless or living in a retirement (including now)? No 03/04/2024 Sex and Gender Information Value Date Recorded Sex Assigned at Not on file Legal Sex Male 6:37 PM EDT Gender Identity Not on file Sexual Orientation Not on file documented as of this encounter Plan of Treatment Upcoming Encounters Date Type Department Care Team (Late st Contact Info) Description 12/21/2024 8:15 AM EDT [facility] [address] [place] [address] Diaz Leonardo MD [address] [place] [phone] documented as of this encounter Visit Diagnoses Not on filedocumented in this encounter Care Teams Compensation Intern Relationship Specialty Start Date End Date Shaikh Ludwig MD [address] [place] [phone] PCP - General Internal Medicine 05/13/23 documented as of this encounter
[2024-09-17 07:40] LABS: Basophils Percent Auto 0.5 % (0.2-2.0); Eosinophils Absolute Auto 0.5 10^3/uL (0.0-0.7); Eosinophils Percent Auto 6.1 % (0.9-7.0); Hematocrit 42.6 % (42.0-54.0); Hemoglobin 14.5 g/dL (14.0-18.0); Immature Granulocytes Abs Auto 0.01 10^3/uL (0.00-0.03); Immature Granulocytes Pct Auto 0.1 % (0.0-0.5); Lymphocytes Absolute Auto 2.4 10^3/uL (1.2-3.8); Lymphocytes Percent Auto 32.9 % (20.5-60.0); Mean Corpuscular Hemoglobin 29.8 pg (25.9-34.0); Mean Corpuscular Volume 87.5 fL (80.0-94.0); Mean Platelet Volume 11.3 fL (9.5-13.5); Monocytes Absolute Auto 0.5 10^3/uL (0.3-0.8); Monocytes Percent Auto 7.2 % (1.7-12.0); Neutrophils Absolute Auto 3.9 10^3/uL (1.4-6.5); Neutrophils Percent Auto 53.2 % (43.0-75.0); Platelet Count 258 10^3/uL (150-450); Red Blood Count 4.87 10^6/uL (4.70-6.10); Red Cell Distribution Width 12.6 % (11.0-15.0); White Blood Count 7.4 10^3/uL (4.0-11.0)
[2024-09-17 08:38] LABS: Alanine Aminotransferase 30 U/L (16-63); Albumin Globulin Ratio 1.1; Albumin Level 3.9 g/dL (3.4-5.0); Alkaline Phosphatase 103 U/L (46-116); Anion Gap 12.2; Aspartate Amino Transferase 14 U/L (15-37); BUN Creatinine Ratio 16.3; Bilirubin Direct 0.1 mg/dL (0.0-0.2); Bilirubin Total 0.4 mg/dL (0.2-1.0); Calcium 9.2 mg/dL (8.5-10.1); Carbon Dioxide 29.3 mmol/L (21.0-32.0); Chloride 104 mmol/L (98-107); Chol HDL Ratio 3.4; Cholesterol 168 mg/dL (<=200); Estimated GFR (African America >60 (>=60 mL/min/1.73m^2); Estimated GFR (Non-African Ame >60 (>=60 mL/min/1.73m^2); Globulin 3.7 g/dL; Glucose 91 mg/dL (74-106); HDL Cholesterol 50 mg/dL (40-60); LDL Cholesterol Calculated 106.8 mg/dL; Potassium 3.5 mmol/L (3.5-5.1); Sodium 142 mmol/L (136-145); Thyroid Stimulating Hormone 2.346 uIU/mL (0.358-3.740); Total Protein 7.6 g/dL (6.4-8.2); Triglycerides 56 mg/dL (<=150); VLDL CHOLESTEROL 11.2 mg/dL
[2024-09-17 08:46] LABS: Prostate Specific Antigen Scrn 4.44 ng/mL (<=4.00)
[2024-09-17 08:49] LABS: Estimated Average Glucose 111 mg/dL; Glycohemoglobin A1C 5.5 % (4.5-6.2)
[2024-09-18 04:07] LABS: Testosterone 282 ng/dL (264-916)
== END 2024-09-17 07:22 | disposition home or self-care (01) ==
LOC: LAB 07:25
PROVIDERS: Family Provider Family Medicine; PCP Family Medicine; Visit Provider Family Medicine
DX: Z00.00 Encounter for general adult medical examination without abnormal findings (principal)
CPT/HCPCS: 36415; 80048; 80061; 80076; 83036; 84403; 84443; 85025; G0103